=== PATIENT | female | born 1945 | race Caucasian/White ===

== ENCOUNTER 2017-11-04 13:20 | Observation (INO) | payer OTHER, MEDICAID ==
[2017-11-04 13:30] VITALS: BMI 31.5
[2017-11-04] MEDS ORDERED: NITROSTAT SL ONE (13:30)
[2017-11-04] MEDS ORDERED: ASPIRIN 81 MG CHEWTAB ONE (13:30)
[2017-11-04] MEDS ORDERED: ECOTRIN TAB 325 MG PO ONE (13:34)
--- NOTE | 2017-11-04 13:35 | DR.GENAD ---
HPI - PCP Primary Care Physician: CELESTINO - Complaint/Symptoms Chief Complaint Doctors Comments: History as stated. Patient denies a history of cardiac disease.. She states that she has chest pressure that radiates to the back. There is no diaphoresis. She admits to having controlling her A Fib and was changed from coreg to cardiazem. She says she is till having problems with heart rate. Chief Complaint:: PT. C/O CHEST PAIN AND PAIN BETWEEN HER SHOULDER BLADES. PT. STATES SHE FEELS LIKE SHE IS CHOKING. DR. TIRADO TOOK PT. OFF OF COREG 3.125MG PO BID AND PLACED HER ON CARDIZEM ER 180MG PO DAILY. CHEST PAIN BEGAN 30 MINUTES GENERAL OFFICE ASSISTANT. - Source History Provided: Patient - Mode of Arrival Mode of Arrival: Ambulatory - Timing Onset of Chief Complaint: 10/20/17 PMH - PMH Past Medical History: Yes Past Medical History: Anxiety, COPD, Depression, Dyslipidemia, GERD, Hypertension Past Medical History Comment: A-FIB Past Surgical History: Yes Surgical History: Appendectomy, Cholecystectomy, Hysterectomy, Mastectomy Past Surgical History Comment: BILATERAL MASTECTOMY, HERNIA REPAIR - Family History History of Family Medical Conditions: No - Social History Does patient currently use any type of tobacco product: No Have you used tobacco products in the last 12 months: No Type of Tobacco Use: None Does any household member use tobacco: No Alcohol Use: None Do you use any recreational Drugs:: No Lives With: Family Lives Where: Home - infectious screening In the last 2 months have you had wt loss of >10#?: NO Have you had fever, night sweats or hemotysis?: No Have you traveled outside the country in the last 6 months?: No Isolation: Standard ROS - Review of Systems Constitutional: negative: Diaphoresis Eyes: No Symptoms Reported ENTM: No Symptoms Reported Respiratoy: No Symptoms Reported Cardiovascular: No Symptoms Reported Gastrointestinal/Abdominal: No Symptoms Reported Genitourinary: No Symptoms Reported Neurological: No Symptoms Reported Musculoskeletal: No Symptoms Reported Integumentary: No Symptoms Reported Hematologic/Lymphatic: No Symptoms Reported Endocrine: No Symptoms Reported Psychiatric: No Symptoms Reported All Other Systems: Reviewed and Negative PE - Vital Signs Vitals: Temperature 97.6 F Pulse Rate [Apical] 69 Pulse Rate 90 Respiratory Rate 22 Blood Pressure [Left Arm] 111/59 Blood Pressure 134/62 O2 Sat by Pulse Oximetry 99 - General Limitations: No Limitations General Appearance: Alert, In No Apparent Distress - Head Head Exam: Normal Inspection, Atraumatic - Eyes Eye exam: Normal Appearance, PERRL, EOMI - ENT ENT Exam: Normal Exam External Ear Exam: Normal External Inspection TM/Canal Exam: Bilateral Normal Nose Exam: Normal Nose Exam, Sinus Tenderness Mouth Exam: Normal Inspection Throat Exam: Normal Inspection - Neck Neck Exam: Normal Inspection, Full ROM - Chest Chest Inspection: Normal Inspection - Respiratory Respiratory Exam: Normal Lung Sounds Bilat Respiratory Exam: Bilateral Clear to Auscultation - Cardiovascular Cardiovascular Exam: Regular Rate, Normal Rhythm - Abdominal Exam Abdominal Exam: Normal Inspection, Normal Bowel Sounds Abdominal Tenderness: negative: RUQ, RLQ, LUQ, LLQ, Epigastrium, Suprapubic, Diffuse, Mild, Moderate, Severe, Other - Extremities Extremities Exam: Normal Inspection, Full ROM - Back Back Exam: Normal Inspection - Neurologic Neurological Exam: Alert, Oriented X3, CN II-XII Intact - Psychiatric Psychiatric Exam: Normal Affect - Skin Skin Exam: Warm, Dry, Intact Course - Reevaluation 1st: Improved - Consultation Called: 15:15 (Dr Terry agreed to admit for further evaluatin and treatment) ROR - Labs Reviewed Result Diagrams: 11/04/17 13:40 11/04/17 13:40 Laboratory: WBC 12.1 X10^3/uL (3.6-10.0) H 11/04/17 13:40 RBC 4.45 X10^6/uL (3.5-5.4) 11/04/17 13:40 Hgb 13.6 g/dL (12.0-16.0) 11/04/17 13:40 Hct 40.3 % (36.0-47.0) 11/04/17 13:40 MCV 90.5 fL (80.0-100.0) 11/04/17 13:40 MCH 30.4 pg (27.0-34.0) 11/04/17 13:40 MCHC 33.6 g/dL (33.0-35.0) 11/04/17 13:40 RDW 13.9 % (11.6-16.5) 11/04/17 13:40 Plt Count 214 X10^3/uL (150.0-450.0) 11/04/17 13:40 MPV 9.9 fL (7.4-11.0) 11/04/17 13:40 Neut % (Auto) 67.1 % (42.0-75.0) 11/04/17 13:40 Lymph % (Auto) 19.8 % (21.0-51.0) L 11/04/17 13:40 Petroleum % (Auto) 6.4 % (0.0-13.0) 11/04/17 13:40 Eos % (Auto) 5.9 % (0.9-2.9) H 11/04/17 13:40 Baso % (Auto) 0.8 % (0.2-1.0) 11/04/17 13:40 Neut # (Auto) 8.1 x10^3/uL (2.2-4.8) H 11/04/17 13:40 Lymph # (Auto) 2.4 X10^3/uL (1.3-2.9) 11/04/17 13:40 Petroleum # (Auto) 0.8 x10^3/uL (0.3-0.8) 11/04/17 13:40 Eos # (Auto) 0.7 x10^3/uL (0.0-0.2) H 11/04/17 13:40 Baso # (Auto) 0.1 X10^3/uL (0.0-0.1) 11/04/17 13:40 Absolute Nucleated RBC 0.1 /100WBC 11/04/17 13:40 INR Target Range - 11/04/17 13:40 INR 0.93 (0.8-1.3) 11/04/17 13:40 APTT 27.5 SECONDS (22.9-36.5) 11/04/17 13:40 PTT Comment - 11/04/17 13:40 Sodium 139 mmol/L (136-145) 11/04/17 13:40 Corrected Sodium TNP 11/04/17 13:40 Potassium 4.0 mmol/L (3.5-5.1) 11/04/17 13:40 Chloride 101 mmol/L (98-107) 11/04/17 13:40 Carbon Dioxide 26.2 mmol/L (21-32) 11/04/17 13:40 BUN 39 mg/dL (7-18) H 11/04/17 13:40 Creatinine 1.87 mg/dL (0.55-1.02) H 11/04/17 13:40 Est GFR (MDRD) Af Amer 34 (>60) L 11/04/17 13:40 Est GFR (MDRD) Non-Af 28 (>60) L 11/04/17 13:40 Glucose 108 mg/dL (65-99) H 11/04/17 13:40 Calcium 8.9 mg/dL (8.5-10.1) 11/04/17 13:40 Corrected Calcium TNP 11/04/17 13:40 Total Bilirubin 0.40 mg/dL (0.2-1.0) 11/04/17 13:40 AST 24 Units/L (15-37) 11/04/17 13:40 ALT 32 Units/L (12-78) 11/04/17 13:40 Alkaline Phosphatase 115 Units/L (46-116) 11/04/17 13:40 Creatine Kinase 179 Units/L (26-192) 11/04/17 13:40 CK-MB (CK-2) 5.1 ng/mL (0-4.0) H* 11/04/17 13:40 CK/CKMB % Calc 2.9 % (<4) 11/04/17 13:40 Troponin I < 0.02 ng/mL (0-1.5) 11/04/17 13:40 Total Protein 8.6 g/dL (6.4-8.2) H 11/04/17 13:40 Albumin 4.0 g/dL (3.4-5.0) 11/04/17 13:40 Globulin 4.6 g/dL (2.5-4.5) H 11/04/17 13:40 Albumin/Globulin Ratio 0.9 Ratio (1.1-2.1) L 11/04/17 13:40 - XRAY XRAY Interpreted by: Radiologist - Diagnosis Discharge Problem: Prerenal azotemia Chest pain Qualifiers: Chest pain type: unspecified Qualified Code(s): R07.9 - Chest pain, unspecified - Discharge Plan Condition: Stable - Follow ups/Referrals Follow ups/Referrals: Gerardo WALLER [Primary Care Provider] - 3 days - Instructions
[2017-11-04] MEDS: NITROSTAT SL PRN ×2 (13:42→13:49)
[2017-11-04] MEDS: NS 1000 ML 1,000 ML IV SCH (13:52)
--- NOTE | 2017-11-04 13:52 | RAD ---
History: Chest pain. Study: Single-view chest. Comparison: 02/06/2013. Findings: The trachea is midline. The cardiac silhouette is within normal limits. The lungs are clear without focal consolidation, pleural effusion or pneumothorax. Surgical clips project over both lety sts, the right axillary region and upper abdomen. There are postsurgical changes of the cervical spin e as well. Impression: No acute cardiopulmonary process. Reported By:
[2017-11-04] MEDS ORDERED: DEMEROL INJ IVP ONE (13:55)
[2017-11-04] MEDS ORDERED: DEMEROL INJ ONE (13:56)
[2017-11-04 14:07] LABS: BASOPHILS # (AUTO) 0.1 X10^3/uL (0.0-0.1); BASOPHILS % (AUTO) 0.8 % (0.2-1.0); EOSINOPHILS # (AUTO) 0.7 x10^3/uL (0.0-0.2); EOSINOPHILS % (AUTO) 5.9 % (0.9-2.9); HEMATOCRIT 40.3 % (36.0-47.0); HEMOGLOBIN 13.6 g/dL (12.0-16.0); LYMPHOCYTES # (AUTO) 2.4 X10^3/uL (1.3-2.9); LYMPHOCYTES % (AUTO) 19.8 % (21.0-51.0); MEAN CORPUSCULAR HEMOGLOBIN 30.4 pg (27.0-34.0); MEAN CORPUSCULAR HGB CONC 33.6 g/dL (33.0-35.0); MEAN CORPUSCULAR VOLUME 90.5 fL (80.0-100.0); MEAN PLATELET VOLUME 9.9 fL (7.4-11.0); MONOCYTES # (AUTO) 0.8 x10^3/uL (0.3-0.8); MONOCYTES % (AUTO) 6.4 % (0.0-13.0); NEUTROPHILS # (AUTO) 8.1 x10^3/uL (2.2-4.8); NEUTROPHILS % (AUTO) 67.1 % (42.0-75.0); PLATELET COUNT 214 X10^3/uL (150.0-450.0); RED BLOOD COUNT 4.45 X10^6/uL (3.5-5.4); RED CELL DISTRIBUTION WIDTH 13.9 % (11.6-16.5); WHITE BLOOD COUNT 12.1 X10^3/uL (3.6-10.0)
[2017-11-04 14:08] LABS: BLOOD UREA NITROGEN 39 mg/dL (7-18); CALCIUM 8.9 mg/dL (8.5-10.1); CARBON DIOXIDE 26.2 mmol/L (21-32); CHLORIDE 101 mmol/L (98-107); CREATININE 1.87 mg/dL (0.55-1.02); SODIUM 139 mmol/L (136-145); TROPONIN I < 0.02 ng/mL (0-1.5); eGFR BLACK RACES 34 (>60); eGFR NON BLACK RACES 28 (>60)
[2017-11-04 14:30] LABS: ALANINE AMINOTRANSFERASE 32 Units/L (12-78); ALKALINE PHOSPHATASE 115 Units/L (46-116); ASPARTATE AMINO TRANSFERASE 24 Units/L (15-37); CKMB % 2.9 % (<4); CREATINE KINASE 179 Units/L (26-192); TOTAL PROTEIN 8.6 g/dL (6.4-8.2)
[2017-11-04 14:32] LABS: CREATINE KINASE MB 5.1 ng/mL (0-4.0)
[2017-11-04 19:52] LABS: CKMB % 2.7 % (<4); CREATINE KINASE 158 Units/L (26-192); TROPONIN I < 0.02 ng/mL (0-1.5)
[2017-11-04 19:56] LABS: CREATINE KINASE MB 4.2 ng/mL (0-4.0)
[2017-11-04] MEDS ORDERED: MILK OF MAGNESIA PO PRN (21:24)
[2017-11-04] MEDS: COLACE CAP 100 MG PO SCH (21:37)
[2017-11-04] MEDS: ATIVAN TAB 1 MG PO PRN (21:38)
[2017-11-04] MEDS: PERCOCET TAB 5/325 MG PO PRN (21:38)
[2017-11-05] MEDS: NS 1000 ML 1,000 ML IV SCH ×3 (01:09→16:33)
[2017-11-05 01:56] LABS: CKMB % 2.6 % (<4); CREATINE KINASE 144 Units/L (26-192); CREATINE KINASE MB 3.8 ng/mL (0-4.0); TROPONIN I < 0.02 ng/mL (0-1.5)
[2017-11-05] MEDS: PERCOCET TAB 5/325 MG PO PRN ×3 (04:11→17:06)
[2017-11-05 06:25] LABS: BASOPHILS # (AUTO) 0.1 X10^3/uL (0.0-0.1); BASOPHILS % (AUTO) 1.2 % (0.2-1.0); EOSINOPHILS # (AUTO) 0.9 x10^3/uL (0.0-0.2); EOSINOPHILS % (AUTO) 10.4 % (0.9-2.9); HEMATOCRIT 34.3 % (36.0-47.0); HEMOGLOBIN 11.6 g/dL (12.0-16.0); LYMPHOCYTES # (AUTO) 2.3 X10^3/uL (1.3-2.9); LYMPHOCYTES % (AUTO) 26.5 % (21.0-51.0); MEAN CORPUSCULAR HEMOGLOBIN 30.8 pg (27.0-34.0); MEAN CORPUSCULAR HGB CONC 33.8 g/dL (33.0-35.0); MEAN PLATELET VOLUME 10.7 fL (7.4-11.0); MONOCYTES # (AUTO) 0.8 x10^3/uL (0.3-0.8); MONOCYTES % (AUTO) 8.9 % (0.0-13.0); NEUTROPHILS # (AUTO) 4.7 x10^3/uL (2.2-4.8); PLATELET COUNT 143 X10^3/uL (150.0-450.0); RED BLOOD COUNT 3.77 X10^6/uL (3.5-5.4); RED CELL DISTRIBUTION WIDTH 14.1 % (11.6-16.5); WHITE BLOOD COUNT 8.8 X10^3/uL (3.6-10.0)
[2017-11-05 06:52] LABS: ALANINE AMINOTRANSFERASE 26 Units/L (12-78); ALBUMIN 2.9 g/dL (3.4-5.0); ALKALINE PHOSPHATASE 102 Units/L (46-116); ASPARTATE AMINO TRANSFERASE 19 Units/L (15-37); BLOOD UREA NITROGEN 26 mg/dL (7-18); CALCIUM 8.1 mg/dL (8.5-10.1); CARBON DIOXIDE 24.6 mmol/L (21-32); CHLORIDE 107 mmol/L (98-107); CHOL/HDL RATIO 2.4 (0.0-5.0); CHOLESTEROL 205 mg/dL (0-200); CREATININE 1.12 mg/dL (0.55-1.02); HDL CHOLESTEROL 85 mg/dL (40-60); SODIUM 140 mmol/L (136-145); TOTAL PROTEIN 6.7 g/dL (6.4-8.2); TRIGLYCERIDES 91 mg/dL (0-150); eGFR BLACK RACES > 60 (>60); eGFR NON BLACK RACES 51 (>60)
[2017-11-05] MEDS: ATIVAN TAB 1 MG PO PRN ×2 (10:20→17:06)
[2017-11-05] MEDS ORDERED: ACETAMINOPHEN PO PRN (13:29)
[2017-11-05] MEDS ORDERED: PHENERGAN TAB 25 MG PO PRN (13:29)
[2017-11-05] MEDS ORDERED: OXYCODONE HCL PO PRN (13:29)
[2017-11-05] MEDS ORDERED: ATIVAN TAB 1 MG PO PRN (13:29)
[2017-11-05] MEDS ORDERED: [UNRECOGNIZED DRUG - OTHER] PO PRN (13:29)
--- NOTE | 2017-11-05 13:29 | DR.H&P ---
H&P - History & Physical for Day of: H&P Date: 11/04/17 - Chief Complaint Chief Complaint: CP, SOB - Allergies Allergies/Adverse Reactions: Allergies Allergy/AdvReac Type Severity Reaction Status Date / Time amoxicillin [From Augmentin] Allergy Verified 11/04/17 14:12 aspirin Allergy Verified 11/04/17 14:12 clavulanic acid Allergy Verified 11/04/17 14:12 [From Augmentin] morphine Allergy Verified 11/04/17 14:12 NSAIDS (Non-Steroidal Allergy Verified 11/04/17 14:12 Anti-Inflamma - History of Present Illness History of Present Illness: 71 WF ER ADMISSION AFTER PRESENTING WITH CO CP AND SOB. PT STATES SHE HAS HX OF AFIB AND RECENTLY SEEN DR TIRADO AND HAD MEDICATION CHANGES. PT CO LEFT SIDE CP AND SOB, WORSE ON EXERTION. PT HAS PMH OF HTN, AFIB , COPD, OA. PT ADMITTED FOR EVALAUTION OF CP, R/O AMI - Past Medical History Past Medical History: Anxiety, COPD, Depression, Dyslipidemia, GERD, Hypertension - Past Surgical History Surgical History: Appendectomy, Cholecystectomy, Hysterectomy, Mastectomy - Social History Does patient currently use any type of tobacco product: No Have you used tobacco products in the last 12 months: No Type of Tobacco Use: None Does any household member use tobacco: No Alcohol Use: None Drug Use: Prescription Drugs - Medications Home Medications: Albuterol Neb 2.5MG/ 3Ml [ALBUTEROL NEB 2.5MG/ 3ML *] 2.5 mg PO TID PRN [History Confirmed 11/04/17] Carisoprodol 1 tab PO BID 11/04/17 [History Confirmed 11/04/17] Cetirizine HCl 1 tab PO DAILY 11/04/17 [History Confirmed 11/04/17] Dicyclomine HCl 1 tab PO DAILY 11/04/17 [History Confirmed 11/04/17] Fluticasone/Salmeterol [Advair Diskus 250-50 Mcg/Dose 14-dose] 1 inh INH BID PRN 11/04/17 [History Confirmed 11/04/17] Furosemide 20 mg PO BID 11/04/17 [History Confirmed 11/04/17] Levalbuterol Hfa Inhaler [XOPENEX HFA INHALER *] 2 inh INH Q4HR PRN 11/04/17 [ History Confirmed 11/04/17] Lisdexamfetamine Dimesylate [Vyvanse] 40 mg PO DAILY 11/04/17 [History Confirmed 11/04/17] Lorazepam [ATIVAN 1 MG TAB *] 1 mg PO TID PRN 11/04/17 [History Confirmed ] Melatonin 10 mg PO HS PRN 11/04/17 [History Confirmed 11/04/17] Mometasone/Formoterol [Dulera 100/5 mcg] 1 inh INH DAILY 11/04/17 [History Confirmed 11/04/17] Multivitamin [Multi-Vitamin Daily] 1 tab PO DAILY 11/04/17 [History Confirmed ] Oxycodone HCl/Acetaminophen [Endocet 10-325 mg Tablet] 1 tab PO Q6HR PRN [History Confirmed 11/04/17] Potassium Chloride [K-DUR TAB 20 mEq *] 20 mg PO BID 11/04/17 [History Confirmed 11/04/17] Promethazine HCl [PHENERGAN TAB 25 MG *] 25 mg PO Q6HR PRN 11/04/17 [History Confirmed 11/04/17] Ranitidine HCl 150 mg PO HS 11/04/17 [History Confirmed 11/04/17] Simvastatin 1 tab PO HS 11/04/17 [History Confirmed 11/04/17] Zolpidem Tartrate [AMBIEN 10 MG *] 10 mg PO HS PRN 11/04/17 [History Confirmed 11/04/17] - Review of Systems Constitutional: No Symptoms Reported ENT: No Symptoms Reported Respiratory: Shortness of Breath, SOB with Excertion Cardiovascular: Chest Pain, Palpitations Gastrointestinal: No Symptoms Reported Genitourinary: No Symptoms Reported Musculoskeletal: Back Pain, Neck Pain Skin: No Symptoms Reported Neurological: No Symptoms Reported - Physical Exam Vital Signs: Temperature 98.3 F Pulse Rate [Left Brachial] 74 Pulse Rate [Apical] 72 Pulse Rate 90 Respiratory Rate 18 Blood Pressure [Left Arm] 128/78 Blood Pressure 134/62 O2 Sat by Pulse Oximetry 98 Oriented: Normal Eyes: Normal Ear: Normal Nose: Normal Throat: Normal Respiratory: RLL Diminished, LLL Diminished Cardiovascular: Normal. negative: Edema : Normal Auscultation: Bowel Sounds: Normal Palpation: Normal Tenderness: Normal Skin: Normal Musculoskeletal: Back:Thoracic, Back:Lumbar Psychiatric: Anxiety Affect: Anxious Speech Pattern: Clear - Assessment/Plan (1) SOB (shortness of breath) Status: Acute Plan: ADMIT, SERIAL CE, EKGS. CARDIAC MONITORING. RESUME HOME MEDS. SUPPLEMENTAL O2 (2) Hypertension Status: Acute (3) History of atrial paroxysmal tachycardia Status: Acute (4) Chest pain Qualifiers: Chest pain type: unspecified Qualified Code(s): R07.9 - Chest pain, unspecified Status: Acute
[2017-11-05] MEDS ORDERED: PROVENTIL NEB TX 0.083% 2.5MG/ 3ML NEB SCH (14:00)
[2017-11-05] MEDS: PROVENTIL NEB TX 0.083% 2.5MG/ 3ML NEB SCH ×2 (14:18→21:54)
[2017-11-05] MEDS ORDERED: ATIVAN TAB 1 MG PO ONE (20:30)
[2017-11-05 20:39] VITALS: BP 149/73
[2017-11-05] MEDS: COLACE CAP 100 MG PO SCH (20:42)
[2017-11-05] MEDS ORDERED: PULMICORT NEB TX 0.5 MG NEB SCH (21:00)
[2017-11-05] MEDS ORDERED: K-DUR TAB 20 MEQ PO SCH (21:00)
[2017-11-05] MEDS ORDERED: LASIX PO SCH (21:00)
[2017-11-05] MEDS ORDERED: ZOCOR TAB 40 MG PO SCH (21:00)
[2017-11-05] MEDS ORDERED: ZANTAC PO SCH (21:00)
[2017-11-06] MEDS ORDERED: ZyrTEC TAB 10 MG PO SCH (09:00)
== END 2017-11-05 21:00 | disposition short-term general hospital (02) ==
LOC: ER 13:26 → MED/SURG 15:42
PROVIDERS: ADMIT Internal Medicine; ATTEND Internal Medicine
DX: R07.89 Other chest pain (principal); R79.89 Other specified abnormal findings of blood chemistry; R06.02 Shortness of breath; I48.91 Unspecified atrial fibrillation; I10 Essential (primary) hypertension; J44.9 Chronic obstructive pulmonary disease, unspecified; E78.2 Mixed hyperlipidemia; K21.9 Gastro-esophageal reflux disease without esophagitis; M19.90 Unspecified osteoarthritis, unspecified site
CPT/HCPCS: 36415; 71045; 80053; 80061; 82550; 82553; 84484; 85025; 85610; 85730; 93005; 93010; 94640; 94760; 96365; 96374; 99284; A4222; G0378; J2175; J7613; J7626

== ENCOUNTER 2018-08-10 16:07 | Observation (INO) ==
--- NOTE | 2018-08-10 16:26 | DR.H&P ---
H&P - History & Physical for Day of: H&P Date: 08/10/18 - Chief Complaint Chief Complaint: alvarez, dizziness, blurred vision, htn - History of Present Illness History of Present Illness: 72 WF DIRECT ADMIT FROM DR WANG OFFICE AFTER PRESENTING WITH CO ALVAREZ WITH BLURRED VISION AND DIZZINESS. PT HAS PMH OF HTN, BUT CO BP 180 SYSTOLIC. PT CO VELASQUEZ. PT HEART RATE 52 IN OFFICE. PT HAS PMH OF COPD, OA, CAD, TRICE, HTN, GERD, [place]. PT ADMITTED FOR TREATMENT OF NEW ONSET SYMPTOMATIC BRADYCARDIA, ALVAREZ WITH VISUAL DISTURBANCE. - Past Medical History Past Medical History: Anxiety, COPD, Depression, Dyslipidemia, GERD, Hypertension - Past Surgical History Surgical History: Appendectomy, Cholecystectomy, Hysterectomy, Mastectomy - Social History Does patient currently use any type of tobacco product: No Have you used tobacco products in the last 12 months: No Type of Tobacco Use: None Does any household member use tobacco: No Alcohol Use: None Drug Use: None - Medications Home Medications: amoxicillin [From Augmentin] Allergy (Verified 11/04/17 14:12) aspirin Allergy (Verified 11/04/17 14:12) clavulanic acid [From Augmentin] Allergy (Verified 11/04/17 14:12) morphine Allergy (Verified 11/04/17 14:12) NSAIDS (Non-Steroidal Anti-Inflamma Allergy (Verified 11/04/17 14:12) - Review of Systems Constitutional: Weakness Eyes: No Symptoms Reported ENT: No Symptoms Reported Respiratory: SOB with Excertion Cardiovascular: Edema, Light Headedness Gastrointestinal: Nausea Genitourinary: No Symptoms Reported Musculoskeletal: Back Pain, Neck Pain Skin: No Symptoms Reported Neurological: Weakness, Other (ALVAREZ, DIZZINESS) - Physical Exam Vital Signs: Blood Pressure [Left Arm] 149/73 Blood Pressure 149/73 Oriented: Normal Eyes: Normal Nose: Normal Throat: Normal Respiratory: RLL Diminished, LLL Diminished Cardiovascular: Bradycardia, Edema : Normal Auscultation: Bowel Sounds: Normal Palpation: Normal Tenderness: Normal Skin: Normal Musculoskeletal: Back:Lumbar Psychiatric: Anxiety Affect: Anxious Speech Pattern: Clear, Appropriate - Assessment/Plan (1) Bradycardia Status: Acute Plan: ADMIT, CT HEAD ON ADMISSION R/O ACUTE CVA. SERIAL CE AND EKG. TELEMETRY, HOLD BETABLOCKERS. VERIFY HOME MEDICATION ADMISSION LABS, UA. CTA CAROTIDS, BP AND LIPID CONTROL. PAIN CONTROL (2) Headache Status: Acute (3) Dizziness Status: Acute (4) Vision blurred Status: Acute (5) Hypertension Status: Acute (6) SOB (shortness of breath) Status: Acute - Allergies Allergies/Adverse Reactions: Allergies Allergy/AdvReac Type Severity Reaction Status Date / Time amoxicillin [From Augmentin] Allergy Verified 11/04/17 14:12 aspirin Allergy Verified 11/04/17 14:12 clavulanic acid Allergy Verified 11/04/17 14:12 [From Augmentin] morphine Allergy Verified 11/04/17 14:12 NSAIDS (Non-Steroidal Allergy Verified 11/04/17 14:12 Anti-Inflamma
[2018-08-10] MEDS ORDERED: NS 1000 ML 1,000 ML IV SCH (17:00)
--- NOTE | 2018-08-10 17:32 | RAD ---
CHEST RADIOGRAPHS PA AND LATERAL VIEWS CLINICAL HISTORY: 72-year-old female with shortness of breath and history of COPD. COMPARISON: Chest radiograph 11/04/2017. FINDINGS: Surgical and support devices are unchanged. The cardiopericardial silhouette is stable with chronic prominence interstitium and perihilar lung markings. There is no focal consolidation, pleural effusion or pneumothorax. The lungs are well inflated. Pulmonary vascularity is normal. Imaged osseous structures are intact. Soft tissues are unremarkable. IMPRESSION: No acute cardiopulmonary process with findings consistent with history of COPD. Reported By:
--- NOTE | 2018-08-10 17:39 | CT ---
HISTORY: Blurred vision, dizziness, and headache. Study: CT brain without contrast Comparison: None. Technique: Multiple axial images of the brain were obtained from the skull base to the vertex without administration of IV contrast. Dose reduction techniques including Automated Exposure Control (AEC) and adjustment of mA and kV were utilized. Findings: Age-related cortical atrophy and chronic small vessel ischemic changes. No acute intraparenchymal hemorrhage or mass can be identified. No extra-axial fluid collections are seen. No alteration in the attenuation of the brain parenchyma can be identified to suggest acute or subacute ischemic change. The ventricular system is symmetric and nondilated. The extracranial structures are grossly unremarkable. IMPRESSION: No acute intracranial pathology. However, if clinically concerned for acute ischemia/infarction MRI of the brain is more sensitive. Reported By:
[2018-08-10 17:47] LABS: BASOPHILS # (AUTO) 0.1 X10^3/uL (0.0-0.1); BASOPHILS % (AUTO) 0.9 % (0.2-1.0); EOSINOPHILS # (AUTO) 0.8 x10^3/uL (0.0-0.2); HEMOGLOBIN 13.9 g/dL (12.0-16.0); LYMPHOCYTES # (AUTO) 2.2 X10^3/uL (1.3-2.9); LYMPHOCYTES % (AUTO) 21.3 % (21.0-51.0); MEAN CORPUSCULAR HEMOGLOBIN 31.1 pg (27.0-34.0); MEAN CORPUSCULAR HGB CONC 33.8 g/dL (33.0-35.0); MEAN CORPUSCULAR VOLUME 92.2 fL (80.0-100.0); MEAN PLATELET VOLUME 9.9 fL (7.4-11.0); MONOCYTES # (AUTO) 0.6 x10^3/uL (0.3-0.8); MONOCYTES % (AUTO) 5.6 % (0.0-13.0); NEUTROPHILS # (AUTO) 6.6 x10^3/uL (2.2-4.8); NEUTROPHILS % (AUTO) 64.2 % (42.0-75.0); PLATELET COUNT 225 X10^3/uL (150.0-450.0); RED BLOOD COUNT 4.45 X10^6/uL (3.5-5.4); RED CELL DISTRIBUTION WIDTH 13.6 % (11.6-16.5); WHITE BLOOD COUNT 10.2 X10^3/uL (3.6-10.0)
[2018-08-10] MEDS: COZAAR PO SCH (17:59)
[2018-08-10 18:02] LABS: BLOOD UREA NITROGEN 14 mg/dL (7-18); CALCIUM 9.1 mg/dL (8.5-10.1); CARBON DIOXIDE 29.8 mmol/L (21-32); CHLORIDE 102 mmol/L (98-107); COR NA(FOR HYPERGLY) 140 mmol/L (136-145); CREATININE 1.09 mg/dL (0.55-1.02); SODIUM 140 mmol/L (136-145); TROPONIN I < 0.02 ng/mL (0-1.5); eGFR NON BLACK RACES 53 (>60)
[2018-08-10 18:06] LABS: ALANINE AMINOTRANSFERASE 23 Units/L (12-78); ALBUMIN 3.6 g/dL (3.4-5.0); ALKALINE PHOSPHATASE 118 Units/L (46-116); ASPARTATE AMINO TRANSFERASE 18 Units/L (15-37); CKMB % 2.2 % (<4); CREATINE KINASE 88 Units/L (26-192); CREATINE KINASE MB 1.9 ng/mL (0-4.0); MAGNESIUM 1.8 mg/dL (1.7-2.9); TOTAL PROTEIN 7.8 g/dL (6.4-8.2)
[2018-08-10] MEDS: XOPENEX 1.25 MG/3 ML NEBULE NEB SCH (18:15)
[2018-08-10] MEDS ORDERED: K-DUR TAB 20 MEQ PO PRN (18:22)
[2018-08-10] MEDS ORDERED: POTASSIUM CHL 40 MEQ/NS 0.45% 500 ML IV PRN (18:22)
[2018-08-10] MEDS ORDERED: MICRO K EXTEN CAP 10 MEQ PO PRN (18:22)
[2018-08-10] MEDS ORDERED: K-RIDER 10 MEQ/NS 100 ML 10 MEQ/100 ML BAG IV PRN (18:22)
[2018-08-10] MEDS ORDERED: POTASSIUM CHL 60 MEQ/NS 0.45% 500 ML IV PRN (18:22)
[2018-08-10] MEDS ORDERED: POTASSIUM CHLORIDE LIQ 20 MEQ UDC PO PRN (18:22)
[2018-08-10] MEDS ORDERED: KLOR-CON PO PRN (18:22)
[2018-08-10 18:30] VITALS: BMI 32.8
[2018-08-10 19:15] LABS: BILIRUBIN,URINE NEGATIVE (NEGATIVE); BLOOD/HEMOGLOBIN,URINE 2+ (NEGATIVE); GLUCOSE, URINE NEGATIVE (NEGATIVE); KETONES,URINE NEGATIVE (NEGATIVE); LEUKOCYTE ESTERASE ,URINE 1+ (NEGATIVE); NITRITES,URINE NEGATIVE (NEGATIVE); PROTEIN,URINE 2+ (NEGATIVE); UROBILINOGEN,URINE NORMAL (NORMAL)
[2018-08-10] MEDS: MAGNESIUM SULFATE 1 GRAM/100 mL PREMIX 1 GM/100 ML BAG IV PRN ×2 (19:21→21:01)
[2018-08-10 19:25] LABS: APPEARANCE,URINE CLEAR (CLEAR); COLOR,URINE YELLOW (YELLOW)
[2018-08-10 19:27] LABS: BACTERIA,URINE TRACE /HPF (NEGATIVE); CALCIUM OXALATE CRYSTALS,UR FEW /HPF (NEGATIVE); MUCUS,URINE FEW /HPF (NEGATIVE); SQUAMOUS EPITHELIAL CELL,UR RARE /HPF (NEGATIVE)
[2018-08-10] MEDS ORDERED: ATIVAN TAB 0.5 MG PO PRN (20:59)
[2018-08-10] MEDS ORDERED: COLACE CAP 100 MG PO SCH (21:00)
[2018-08-10] MEDS ORDERED: ZOCOR TAB 40 MG PO SCH (21:00)
[2018-08-10] MEDS: PERCOCET TAB 5/325 MG PO PRN (21:00)
[2018-08-10 23:38] LABS: CKMB % 2.5 % (<4); CREATINE KINASE 73 Units/L (26-192); CREATINE KINASE MB 1.8 ng/mL (0-4.0); TROPONIN I < 0.02 ng/mL (0-1.5)
[2018-08-11] MEDS: XOPENEX 1.25 MG/3 ML NEBULE NEB SCH ×2 (00:57→06:06)
[2018-08-11 06:07] LABS: BASOPHILS # (AUTO) 0.1 X10^3/uL (0.0-0.1); BASOPHILS % (AUTO) 0.7 % (0.2-1.0); EOSINOPHILS # (AUTO) 0.7 x10^3/uL (0.0-0.2); EOSINOPHILS % (AUTO) 7.7 % (0.9-2.9); HEMATOCRIT 37.4 % (36.0-47.0); HEMOGLOBIN 12.3 g/dL (12.0-16.0); LYMPHOCYTES # (AUTO) 2.1 X10^3/uL (1.3-2.9); LYMPHOCYTES % (AUTO) 24.5 % (21.0-51.0); MEAN CORPUSCULAR HEMOGLOBIN 30.7 pg (27.0-34.0); MEAN CORPUSCULAR VOLUME 92.9 fL (80.0-100.0); MEAN PLATELET VOLUME 10.1 fL (7.4-11.0); MONOCYTES # (AUTO) 0.8 x10^3/uL (0.3-0.8); MONOCYTES % (AUTO) 9.3 % (0.0-13.0); NEUTROPHILS # (AUTO) 4.9 x10^3/uL (2.2-4.8); NEUTROPHILS % (AUTO) 57.8 % (42.0-75.0); PLATELET COUNT 177 X10^3/uL (150.0-450.0); RED BLOOD COUNT 4.02 X10^6/uL (3.5-5.4); RED CELL DISTRIBUTION WIDTH 13.9 % (11.6-16.5); WHITE BLOOD COUNT 8.5 X10^3/uL (3.6-10.0)
[2018-08-11 06:28] LABS: ALANINE AMINOTRANSFERASE 18 Units/L (12-78); ALKALINE PHOSPHATASE 114 Units/L (46-116); ASPARTATE AMINO TRANSFERASE 23 Units/L (15-37); BLOOD UREA NITROGEN 22 mg/dL (7-18); CALCIUM 8.6 mg/dL (8.5-10.1); CARBON DIOXIDE 27.7 mmol/L (21-32); CHLORIDE 103 mmol/L (98-107); CKMB % 1.9 % (<4); COR CA(FOR HYPOALB) 9.4 mg/dL (8.5-10.1); CREATINE KINASE 85 Units/L (26-192); CREATINE KINASE MB 1.6 ng/mL (0-4.0); CREATININE 0.97 mg/dL (0.55-1.02); MAGNESIUM 2.7 mg/dL (1.7-2.9); SODIUM 140 mmol/L (136-145); TOTAL PROTEIN 6.9 g/dL (6.4-8.2); TROPONIN I < 0.02 ng/mL (0-1.5); eGFR NON BLACK RACES > 60 (>60)
[2018-08-11] MEDS ORDERED: DEMEROL INJ IVP ONE (08:24)
[2018-08-11] MEDS: COZAAR PO SCH (09:03)
[2018-08-11] MEDS ORDERED: DEMEROL INJ ONE (09:24)
[2018-08-11 10:45] VITALS: BP 156/78
[2018-08-11] MEDS ORDERED: BENADRYL INJ 50 MG VIAL IV ONE (12:51)
[2018-08-11] MEDS ORDERED: BENADRYL INJ 50 MG VIAL ONE (13:18)
--- NOTE | 2018-08-11 13:18 | CT ---
CT ANGIOGRAPHY NECK CLINICAL HISTORY: 72-year-old female with history of carotid artery stenosis and dizziness. COMPARISON: None. TECHNIQUE: Multiple contiguous axial CT images were obtained from the superior orbital rim to the aortic arch prior to and following the administration of 75 mL Omnipaque 350 IV contrast. Coronal and sagittal reformats provided. MIP reformats are submitted. FINDINGS: Noncontrasted images demonstrate no evidence of abnormal intra- or extra-axial fluid collections, midline shift, or mass effect. Villegas-white differentiation is maintained. The ventricular system is normal in size and morphology. The basilar cisterns are normal. Post contrast images demonstrate no evidence of abnormal intracranial enhancement. The vertebral arteries are codominant. The basilar artery gives off normal bilateral AICA, superior cerebellar and posterior cerebral arteries. There are tiny caliber posterior communicating arteries bilaterally. Non flow limiting calcific atherosclerosis at the carotid bifurcations. The internal carotid arteries are normal from their distal cervical segments to the carotid terminus. The middle cerebral arteries and anterior cerebral arteries are normal. There is a small caliber anterior communicating artery. There is normal opacification of the major dural venous sinuses. The take off of the great vessels is conventional. Right vertebral artery enters foramen transversarium at C5, left enters at C6. The origins of the common carotid and vertebral arteries are patent. There is no evidence of dissection or high grade stenosis of the carotid or vertebral systems. The vertebral arteries are codominant. The soft tissues of the neck are within normal limits. Scattered emphysematous changes of the lungs. Multilevel degenerative changes spondyloarthropathy with mild bilateral neural foraminal stenosis C6-C7. Status post ACDF C4-C6 with interbody cages without hardware failure. IMPRESSION: 1. Intact anterior and posterior circulations without dissection, major branch occlusion, aneurysm, or vascular malformation. 2. Non flow limiting calcific atherosclerosis carotid bifurcations. 3. No dissection or high grade stenosis of the carotid or vertebral systems. Reported By:
[2018-08-11] MEDS: PERCOCET TAB 5/325 MG PO PRN (14:11)
--- NOTE | 2018-08-19 13:58 | PCM.DCPLAN ---
Discharge Summary - Admission Date Date of Admission: 08/10/18 - Discharge Date Discharge Date: 08/11/18 - Admission Diagnoses (1) Bradycardia Status: Acute (2) Headache Status: Acute (3) Dizziness Status: Acute (4) Vision blurred Status: Acute (5) Hypertension Status: Acute (6) SOB (shortness of breath) Status: Acute - Discharge Diagnoses Discharge Diagnosis: SAME ADMISSION WITH RESOLUTION IN BRADYCARDIA - Discharge Medications Discharge Medications: Home Medication List diltiazem HCl 180 mg PO DAILY 08/10/18 [History] duloxetine 60 mg PO BID 08/10/18 [History] furosemide 20 mg PO DAILY 08/10/18 [History] losartan 100 mg PO QHS 08/10/18 [History] oxycodone-acetaminophen 10 - 325 mg PO Q6HR PRN 08/10/18 [History] pramipexole 0.125 mg PO QHS 08/10/18 [History] zolpidem [Ambien] 10 mg PO HS #30 tab 08/11/18 [Rx] Prescriptions: zolpidem [Ambien] AILYN HERNANDEZ - Hospital Course Vital Signs: Temperature 97.9 F Pulse Rate [Left Brachial] 78 Pulse Rate 72 Respiratory Rate 18 Blood Pressure [Left Arm] 156/78 Blood Pressure 149/73 O2 Sat by Pulse Oximetry 97 Latest Lab Results: Laboratory Last Values WBC 8.5 X10^3/uL (3.6-10.0) 08/11/18 05:30 RBC 4.02 X10^6/uL (3.5-5.4) 08/11/18 05:30 Hgb 12.3 g/dL (12.0-16.0) 08/11/18 05:30 Hct 37.4 % (36.0-47.0) 08/11/18 05:30 MCV 92.9 fL (80.0-100.0) 08/11/18 05:30 MCH 30.7 pg (27.0-34.0) 08/11/18 05:30 MCHC 33.0 g/dL (33.0-35.0) 08/11/18 05:30 RDW 13.9 % (11.6-16.5) 08/11/18 05:30 Plt Count 177 X10^3/uL (150.0-450.0) 08/11/18 05:30 MPV 10.1 fL (7.4-11.0) 08/11/18 05:30 Neut % (Auto) 57.8 % (42.0-75.0) 08/11/18 05:30 Lymph % (Auto) 24.5 % (21.0-51.0) 08/11/18 05:30 [place] % (Auto) 9.3 % (0.0-13.0) 08/11/18 05:30 Eos % (Auto) 7.7 % (0.9-2.9) H 08/11/18 05:30 Baso % (Auto) 0.7 % (0.2-1.0) 08/11/18 05:30 Neut # (Auto) 4.9 x10^3/uL (2.2-4.8) H 08/11/18 05:30 Lymph # (Auto) 2.1 X10^3/uL (1.3-2.9) 08/11/18 05:30 [place] # (Auto) 0.8 x10^3/uL (0.3-0.8) 08/11/18 05:30 Eos # (Auto) 0.7 x10^3/uL (0.0-0.2) H 08/11/18 05:30 Baso # (Auto) 0.1 X10^3/uL (0.0-0.1) 08/11/18 05:30 Absolute Nucleated RBC 0.0 /100WBC 08/11/18 05:30 Sodium 140 mmol/L (136-145) 08/11/18 05:30 Corrected Sodium TNP 08/11/18 05:30 Potassium 3.9 mmol/L (3.5-5.1) 08/11/18 05:30 Chloride 103 mmol/L (98-107) 08/11/18 05:30 Carbon Dioxide 27.7 mmol/L (21-32) 08/11/18 05:30 BUN 22 mg/dL (7-18) H 08/11/18 05:30 Creatinine 0.97 mg/dL (0.55-1.02) 08/11/18 05:30 Est GFR (MDRD) Af Amer > 60 (>60) 08/11/18 05:30 Est GFR (MDRD) Non-Af > 60 (>60) 08/11/18 05:30 Glucose 107 mg/dL (65-99) H 08/11/18 05:30 Calcium 8.6 mg/dL (8.5-10.1) 08/11/18 05:30 Corrected Calcium 9.4 mg/dL (8.5-10.1) 08/11/18 05:30 Magnesium 2.7 mg/dL (1.7-2.9) 08/11/18 05:30 Total Bilirubin 0.30 mg/dL (0.2-1.0) 08/11/18 05:30 AST 23 Units/L (15-37) 08/11/18 05:30 ALT 18 Units/L (12-78) 08/11/18 05:30 Alkaline Phosphatase 114 Units/L (46-116) 08/11/18 05:30 Creatine Kinase 85 Units/L (26-192) 08/11/18 05:30 CK-MB (CK-2) 1.6 ng/mL (0-4.0) 08/11/18 05:30 CK/CKMB % Calc 1.9 % (<4) 08/11/18 05:30 Troponin I < 0.02 ng/mL (0-1.5) 08/11/18 05:30 Total Protein 6.9 g/dL (6.4-8.2) 08/11/18 05:30 Albumin 3.0 g/dL (3.4-5.0) L 08/11/18 05:30 Globulin 3.9 g/dL (2.5-4.5) 08/11/18 05:30 Albumin/Globulin Ratio 0.8 Ratio (1.1-2.1) L 08/11/18 05:30 Specimen Type Clean catch urine 08/10/18 19:10 Urine Color Yellow (YELLOW) 08/10/18 19:10 Urine Appearance Clear (CLEAR) 08/10/18 19:10 Urine pH 5.0 (5.0 - 8.0) 08/10/18 19:10 Ur Specific [place] 1.025 (1.000-1.030) 08/10/18 19:10 Urine Protein 2+ (NEGATIVE) 08/10/18 19:10 Urine Glucose (UA) Negative (NEGATIVE) 08/10/18 19:10 Urine Ketones Negative (NEGATIVE) 08/10/18 19:10 Urine Occult Blood 2+ (NEGATIVE) 08/10/18 19:10 Urine Nitrite Negative (NEGATIVE) 08/10/18 19:10 Urine Bilirubin Negative (NEGATIVE) 08/10/18 19:10 Urine Urobilinogen Normal (NORMAL) 08/10/18 19:10 Ur Leukocyte Esterase 1+ (NEGATIVE) 08/10/18 19:10 Urine RBC 3-5 /HPF (NONE SEEN) 08/10/18 19:10 Urine WBC 5-10 /HPF (NONE SEEN) 08/10/18 19:10 Ur Squamous Epith Cells Rare /HPF (NEGATIVE) 08/10/18 19:10 Calcium Oxalate Crystal Few /HPF (NEGATIVE) 08/10/18 19:10 Urine Bacteria Trace /HPF (NEGATIVE) 08/10/18 19:10 Urine Mucus Few /HPF (NEGATIVE) 08/10/18 19:10 Ur Culture Indicated? Yes/culture set up 08/10/18 19:10 Hospital Course: 72 WF DIRECT ADMIT FROM DR WANG OFFICE WITH CO INTRACTABLE ALVAREZ, ELEVATED BLOOD PRESSURE AND DIZZINESS PT WAS BRADYCARDIC ON ADMISSION AND HAD CT HEAD RO CVA, WHICH WAS NORMAL PT HAD CE AND EKG AND CXR ON ADMISSION. PT HAD GENTLE I HYDRATION AND CTA CAROTIDS WITHOUT SIGNIFICANT STENOSIS. PT WAS IMPROVED AND STABEL SHE WAS READY TO DC HOME. PT WAS GIVEN BP DIARY INSTRUCATION AND MEDICATION CHANGES. PT VERBALIZED UNDERSTANDING AND D/C MEDICATION ON DC PLAN AND FOLLOW UP INSTRUCTIONS - Discharge Plan Disposition: HOME, SELF-CARE Condition: Stable Prescriptions: zolpidem [Ambien] 10 mg PO HS #30 tab - Follow ups/Referrals Follow ups/Referrals: AILYN HERNANDEZ [Nurse Practitioner] - 08/19/18 1:45 pm - Instructions Instructions: Bradycardia, Adult, Nonspecific Chest Pain, [id number], Hypertension, [id number], Dizziness, [id number] Forms: Patient Portal
== END 2018-08-11 15:15 | disposition home or self-care (01) ==
LOC: MED/SURG
PROVIDERS: ADMIT Internal Medicine; ATTEND Internal Medicine
DX: H53.8 Other visual disturbances; R53.83 Other fatigue; R06.02 Shortness of breath; J44.9 Chronic obstructive pulmonary disease, unspecified; I10 Essential (primary) hypertension; R51 Headache; R42 Dizziness and giddiness; R00.1 Bradycardia, unspecified; E78.2 Mixed hyperlipidemia; M25.50 Pain in unspecified joint; K21.9 Gastro-esophageal reflux disease without esophagitis
CPT/HCPCS: 36415; 70450; 70498; 71020; 71046; 80053; 81001; 82306; 82550; 82553; 83735; 84484; 85025; 87086; 93005; 94640; 94760; 96367; 96374; A4222; G0378; J1200; J2175; J3475; J7030

== ENCOUNTER 2018-10-04 09:30 | Observation (INO) ==
--- NOTE | 2018-10-04 10:31 | ED.ABDFE ---
HPI Time Seen Time Seen by Provider: 10/04/18 10:25 PCP Primary Care Physician: AILYN Mart Doctors Chief Complaint Comments: She feels bad for a few days. This includes some upper abdominal pain with nausea or vomiting but no chest pain. Chief Complaint:: PT C/O " FEELING LIKE SHIT" AND THAT IS NAUSEATED AND HAVING EPIGASTRIC PAIN ,,BR Self Treatment fo Chief Complaint: PT SAYS THE WEEKEND SHE FELT BAD AND IT GOT WORSE THIS AM ,,BR Source History Provided: Patient Mode of arrival Mode of Arrival: Ambulatory Timing Onset of Chief Complaint: 10/02/18 PMH PMH Past Medical History: Yes Past Medical History: Anxiety, COPD, Depression, Dyslipidemia, GERD and Hypertension Past Surgical History: Yes Surgical History: Appendectomy, Cholecystectomy, Hysterectomy, Mastectomy and Other Family History History of Family Medical Conditions: Yes Family Medical History: Cancer Social History Does patient currently use any type of tobacco product: Yes Have you used tobacco products in the last 12 months: Yes Type of Tobacco Use: Cigarettes Does any household member use tobacco: No Alcohol Use: Rarely Do you use any recreational Drugs:: No Lives With: Family Lives Where: Home infectious screening In the last 2 months have you had wt loss of >10#?: NO Have you had fever, night sweats or hemotysis?: No Have you traveled outside the country in the last 6 months?: No Isolation: Standard ROS Review of Systems Constitutional: No Symptoms Reported Eyes: No Symptoms Reported ENTM: No Symptoms Reported Respiratoy: No Symptoms Reported Cardiovascular: No Symptoms Reported Gastrointestinal/Abdominal: Nausea and Vomiting Neurological: No Symptoms Reported Musculoskeletal: No Symptoms Reported Integumentary: No Symptoms Reported Hematologic/Lymphatic: No Symptoms Reported Endocrine: No Symptoms Reported Psychiatric: No Symptoms Reported PE Vital Signs Vitals: Temperature 97.1 F Pulse Rate 70 Respiratory Rate 26 Blood Pressure [Left Arm] 156/78 Blood Pressure 113/56 O2 Sat by Pulse Oximetry 94 General Limitations: No Limitations General Appearance: Alert and In No Apparent Distress Head Head Exam: Normal Inspection, Atraumatic and Normocephalic Eyes Eye exam: Normal Appearance, PERRL and EOMI ENT ENT Exam: Normal Exam, Normal Oropharynx and Mucous Membranes Moist Neck Neck Exam: Normal Inspection, Full ROM and Trachea Midline Chest Chest Inspection: Normal Inspection and Symmetric Chest Wall Rise Respiratory Respiratory Exam: Normal Lung Sounds Bilat Cardiovascular Cardiovascular Exam: Tachycardia, Irregular Rhythm, +S1 and +S2 Abdominal Exam Abdominal Exam: Normal Inspection, Normal Bowel Sounds and Soft Rectal Rectal Exam: Deferred Back Back Exam: Normal Inspection Extremeties Extremities Exam: Normal Inspection and Full ROM External Exam: Female: Deferred Neurologic Neurological Exam: Alert and Oriented X3 Psychiatric Psychiatric Exam: Normal Affect and Normal Mood Skin Skin Exam: Warm, Dry and Normal Color ROR Labs Reviewed Laboratory Results Reviewed?: Yes Result Diagrams: 10/04/18 10:22 10/04/18 10:22 Laboratory: WBC 10.4 X10^3/uL (3.6-10.0) H 10/04/18 10:22 RBC 4.87 X10^6/uL (3.5-5.4) 10/04/18 10:22 Hgb 14.8 g/dL (12.0-16.0) 10/04/18 10:22 Hct 44.8 % (36.0-47.0) 10/04/18 10:22 MCV 91.9 fL (80.0-100.0) 10/04/18 10:22 MCH 30.4 pg (27.0-34.0) 10/04/18 10:22 MCHC 33.1 g/dL (33.0-35.0) 10/04/18 10:22 RDW 13.9 % (11.6-16.5) 10/04/18 10:22 Plt Count 217 X10^3/uL (150.0-450.0) 10/04/18 10:22 MPV 10.0 fL (7.4-11.0) 10/04/18 10:22 Neut % (Auto) 58.2 % (42.0-75.0) 10/04/18 10:22 Lymph % (Auto) 22.1 % (21.0-51.0) 10/04/18 10:22 [place] % (Auto) 7.6 % (0.0-13.0) 10/04/18 10:22 Eos % (Auto) 11.0 % (0.9-2.9) H 10/04/18 10:22 Baso % (Auto) 1.1 % (0.2-1.0) H 10/04/18 10:22 Neut # (Auto) 6.1 x10^3/uL (2.2-4.8) H 10/04/18 10:22 Lymph # (Auto) 2.3 X10^3/uL (1.3-2.9) 10/04/18 10:22 [place] # (Auto) 0.8 x10^3/uL (0.3-0.8) 10/04/18 10:22 Eos # (Auto) 1.1 x10^3/uL (0.0-0.2) H 10/04/18 10:22 Baso # (Auto) 0.1 X10^3/uL (0.0-0.1) 10/04/18 10:22 Absolute Nucleated RBC 0.0 /100WBC 10/04/18 10:22 INR Target Range - 10/04/18 10:22 INR 0.87 (0.8-1.3) 10/04/18 10:22 APTT 23.8 SECONDS (22.9-36.5) 10/04/18 10:22 PTT Comment - 10/04/18 10:22 Sodium 142 mmol/L (136-145) 10/04/18 10:22 Corrected Sodium TNP 10/04/18 10:22 Potassium 3.5 mmol/L (3.5-5.1) 10/04/18 10:22 Chloride 101 mmol/L (98-107) 10/04/18 10:22 Carbon Dioxide 34.1 mmol/L (21-32) H 10/04/18 10:22 BUN 14 mg/dL (7-18) 10/04/18 10:22 Creatinine 1.10 mg/dL (0.55-1.02) H 10/04/18 10:22 Est GFR (MDRD) Af Amer > 60 (>60) 10/04/18 10:22 Est GFR (MDRD) Non-Af 52 (>60) L 10/04/18 10:22 Glucose 102 mg/dL (65-99) H 10/04/18 10:22 Calcium 9.2 mg/dL (8.5-10.1) 10/04/18 10:22 Corrected Calcium TNP 10/04/18 10:22 Magnesium 1.9 mg/dL (1.7-2.9) 10/04/18 10:22 Total Bilirubin 0.40 mg/dL (0.2-1.0) 10/04/18 10:22 AST 24 Units/L (15-37) 10/04/18 10:22 ALT 25 Units/L (12-78) 10/04/18 10:22 Alkaline Phosphatase 113 Units/L (46-116) 10/04/18 10:22 Creatine Kinase 90 Units/L (26-192) 10/04/18 10:22 CK-MB (CK-2) 1.7 ng/mL (0-4.0) 10/04/18 10:22 CK/CKMB % Calc 1.9 % (<4) 10/04/18 10:22 Troponin I < 0.02 ng/mL (0-1.5) 10/04/18 10:22 Total Protein 8.0 g/dL (6.4-8.2) 10/04/18 10:22 Albumin 3.5 g/dL (3.4-5.0) 10/04/18 10:22 Globulin 4.5 g/dL (2.5-4.5) 10/04/18 10:22 Albumin/Globulin Ratio 0.8 Ratio (1.1-2.1) L 10/04/18 10:22 TSH 3rd Generation 4.595 uIU/mL (0.358-3.74) H 10/04/18 10:22 Specimen Type Clean catch urine 10/04/18 11:51 Urine Color Yellow (YELLOW) 10/04/18 11:51 Urine Appearance Clear (CLEAR) 10/04/18 11:51 Urine pH 5.0 (5.0 - 8.0) 10/04/18 11:51 Ur Specific [place] 1.010 (1.000-1.030) 10/04/18 11:51 Urine Protein 2+ (NEGATIVE) 10/04/18 11:51 Urine Glucose (UA) Negative (NEGATIVE) 10/04/18 11:51 Urine Ketones 1+ (NEGATIVE) 10/04/18 11:51 Urine Occult Blood 1+ (NEGATIVE) 10/04/18 11:51 Urine Nitrite Negative (NEGATIVE) 10/04/18 11:51 Urine Bilirubin Negative (NEGATIVE) 10/04/18 11:51 Urine Urobilinogen 1+ (NORMAL) 10/04/18 11:51 Ur Leukocyte Esterase 1+ (NEGATIVE) 10/04/18 11:51 Urine RBC 0-2 /HPF (NONE SEEN) 10/04/18 11:51 Urine WBC 0-2 /HPF (NONE SEEN) 10/04/18 11:51 Ur Squamous Epith Cells Rare /HPF (NEGATIVE) 10/04/18 11:51 Urine Bacteria Negative /HPF (NEGATIVE) 10/04/18 11:51 Urine Mucus Few /HPF (NEGATIVE) 10/04/18 11:51 Ur Culture Indicated? No/not indicated 10/04/18 11:51 EKG Rate: 80 [place]: Normal Rhythm: PACs Block: None Hypertrophy: None ST: Normal Diagnosis Discharge Problem: Benign essential HTN A-fib Qualifiers: Atrial fibrillation type: paroxysmal Qualified Code(s): I48.0 - Paroxysmal atrial fibrillation
[2018-10-04 10:36] LABS: BASOPHILS # (AUTO) 0.1 X10^3/uL (0.0-0.1); BASOPHILS % (AUTO) 1.1 % (0.2-1.0); EOSINOPHILS # (AUTO) 1.1 x10^3/uL (0.0-0.2); HEMATOCRIT 44.8 % (36.0-47.0); HEMOGLOBIN 14.8 g/dL (12.0-16.0); LYMPHOCYTES # (AUTO) 2.3 X10^3/uL (1.3-2.9); LYMPHOCYTES % (AUTO) 22.1 % (21.0-51.0); MEAN CORPUSCULAR HEMOGLOBIN 30.4 pg (27.0-34.0); MEAN CORPUSCULAR HGB CONC 33.1 g/dL (33.0-35.0); MEAN CORPUSCULAR VOLUME 91.9 fL (80.0-100.0); MONOCYTES # (AUTO) 0.8 x10^3/uL (0.3-0.8); MONOCYTES % (AUTO) 7.6 % (0.0-13.0); NEUTROPHILS # (AUTO) 6.1 x10^3/uL (2.2-4.8); NEUTROPHILS % (AUTO) 58.2 % (42.0-75.0); PLATELET COUNT 217 X10^3/uL (150.0-450.0); RED BLOOD COUNT 4.87 X10^6/uL (3.5-5.4); RED CELL DISTRIBUTION WIDTH 13.9 % (11.6-16.5); WHITE BLOOD COUNT 10.4 X10^3/uL (3.6-10.0)
[2018-10-04 11:13] LABS: ALANINE AMINOTRANSFERASE 25 Units/L (12-78); ALBUMIN 3.5 g/dL (3.4-5.0); ALKALINE PHOSPHATASE 113 Units/L (46-116); ASPARTATE AMINO TRANSFERASE 24 Units/L (15-37); BLOOD UREA NITROGEN 14 mg/dL (7-18); CALCIUM 9.2 mg/dL (8.5-10.1); CARBON DIOXIDE 34.1 mmol/L (21-32); CHLORIDE 101 mmol/L (98-107); MAGNESIUM 1.9 mg/dL (1.7-2.9); SODIUM 142 mmol/L (136-145); TSH (3RD GENERATION) 4.595 uIU/mL (0.358-3.74); eGFR NON BLACK RACES 52 (>60)
--- NOTE | 2018-10-04 11:17 | RAD ---
Examination: Chest x-ray. Clinical history: Tachycardia. Technique: A single portable AP view of the chest was obtained. Comparison: 08/10/2018. Findings: Surgical clips are seen overlying the left and right hemithorax, the right axillary region and the upper abdomen. Monitor leads are seen overlying the chest. The lungs are mildly hypoventilated, precluding evaluation of the heart size. No confluent pulmonary opacity is noted. No pneumothorax or pleural effusion is noted. There are postsurgical changes from fusion surgery in the cervical spine. The bones are diffusely osteopenic. Degenerative changes are noted in the spine. Old healed right-sided rib fractures are noted. No acute osseous abnormality is noted. Impression: 1. Mildly hypoventilated lungs. Reported By:
[2018-10-04 11:32] LABS: CKMB % 1.9 % (<4); CREATINE KINASE 90 Units/L (26-192); CREATINE KINASE MB 1.7 ng/mL (0-4.0); TROPONIN I < 0.02 ng/mL (0-1.5)
[2018-10-04 11:56] LABS: BILIRUBIN,URINE NEGATIVE (NEGATIVE); BLOOD/HEMOGLOBIN,URINE 1+ (NEGATIVE); GLUCOSE, URINE NEGATIVE (NEGATIVE); KETONES,URINE 1+ (NEGATIVE); LEUKOCYTE ESTERASE ,URINE 1+ (NEGATIVE); NITRITES,URINE NEGATIVE (NEGATIVE); PROTEIN,URINE 2+ (NEGATIVE); UROBILINOGEN,URINE 1+ (NORMAL)
[2018-10-04 11:57] LABS: APPEARANCE,URINE CLEAR (CLEAR); COLOR,URINE YELLOW (YELLOW)
[2018-10-04 12:08] LABS: BACTERIA,URINE NEGATIVE /HPF (NEGATIVE); MUCUS,URINE FEW /HPF (NEGATIVE); RBC,URINE 0-2 /HPF (NONE SEEN); SQUAMOUS EPITHELIAL CELL,UR RARE /HPF (NEGATIVE)
[2018-10-04] MEDS ORDERED: ZOFRAN INJ 4 MG VIAL IVP ONE (13:04)
[2018-10-04] MEDS ORDERED: ZOFRAN INJ 4 MG VIAL ONE (13:06)
[2018-10-04] MEDS ORDERED: NORCO 10/325 TAB PO ONE (13:49)
[2018-10-04] MEDS ORDERED: NORCO 10/325 TAB ONE (13:50)
--- NOTE | 2018-10-04 13:56 | ED.ABDFE ---
HPI Time Seen Time Seen by Provider: 10/04/18 10:25 PCP Primary Care Physician: AILYN Complaint Chief Complaint:: PT C/O " FEELING LIKE SHIT" AND THAT IS NAUSEATED AND HAVING EPIGASTRIC PAIN ,,BR Self Treatment fo Chief Complaint: PT SAYS THE WEEKEND SHE FELT BAD AND IT GOT WORSE THIS AM ,,BR Source History Provided: Patient Mode of arrival Mode of Arrival: Ambulatory Timing Onset of Chief Complaint: 10/02/18 PMH PMH Past Medical History: Yes Past Medical History: Anxiety, COPD, Depression, Dyslipidemia, GERD and Hypertension Past Surgical History: Yes Surgical History: Appendectomy, Cholecystectomy, Hysterectomy, Mastectomy and Other Family History History of Family Medical Conditions: Yes Family Medical History: Cancer Social History Does patient currently use any type of tobacco product: Yes Have you used tobacco products in the last 12 months: Yes Type of Tobacco Use: Cigarettes Does any household member use tobacco: No Alcohol Use: Rarely Do you use any recreational Drugs:: No Lives With: Family Lives Where: Home infectious screening In the last 2 months have you had wt loss of >10#?: NO Have you had fever, night sweats or hemotysis?: No Have you traveled outside the country in the last 6 months?: No Isolation: Standard PE Vital Signs Vitals: Temperature 97.1 F Pulse Rate 70 Respiratory Rate 26 Blood Pressure [Left Arm] 156/78 Blood Pressure 113/56 O2 Sat by Pulse Oximetry 94 COURSE Reevaluation 1st: Improved 2nd: Improved Education/Counseling Education/Counseling: Patient, Family, Education and Counseling Educated On: Treatment, Diagnosis, Prognosis and Needs for Follow Up ROR Labs Reviewed Result Diagrams: 10/04/18 10:22 10/04/18 10:22 Laboratory: WBC 10.4 X10^3/uL (3.6-10.0) H 10/04/18 10:22 RBC 4.87 X10^6/uL (3.5-5.4) 10/04/18 10:22 Hgb 14.8 g/dL (12.0-16.0) 10/04/18 10:22 Hct 44.8 % (36.0-47.0) 10/04/18 10:22 MCV 91.9 fL (80.0-100.0) 10/04/18 10:22 MCH 30.4 pg (27.0-34.0) 10/04/18 10:22 MCHC 33.1 g/dL (33.0-35.0) 10/04/18 10:22 RDW 13.9 % (11.6-16.5) 10/04/18 10:22 Plt Count 217 X10^3/uL (150.0-450.0) 10/04/18 10:22 MPV 10.0 fL (7.4-11.0) 10/04/18 10:22 Neut % (Auto) 58.2 % (42.0-75.0) 10/04/18 10:22 Lymph % (Auto) 22.1 % (21.0-51.0) 10/04/18 10:22 [place] % (Auto) 7.6 % (0.0-13.0) 10/04/18 10:22 Eos % (Auto) 11.0 % (0.9-2.9) H 10/04/18 10:22 Baso % (Auto) 1.1 % (0.2-1.0) H 10/04/18 10:22 Neut # (Auto) 6.1 x10^3/uL (2.2-4.8) H 10/04/18 10:22 Lymph # (Auto) 2.3 X10^3/uL (1.3-2.9) 10/04/18 10:22 [place] # (Auto) 0.8 x10^3/uL (0.3-0.8) 10/04/18 10:22 Eos # (Auto) 1.1 x10^3/uL (0.0-0.2) H 10/04/18 10:22 Baso # (Auto) 0.1 X10^3/uL (0.0-0.1) 10/04/18 10:22 Absolute Nucleated RBC 0.0 /100WBC 10/04/18 10:22 INR Target Range - 10/04/18 10:22 INR 0.87 (0.8-1.3) 10/04/18 10:22 APTT 23.8 SECONDS (22.9-36.5) 10/04/18 10:22 PTT Comment - 10/04/18 10:22 Sodium 142 mmol/L (136-145) 10/04/18 10:22 Corrected Sodium TNP 10/04/18 10:22 Potassium 3.5 mmol/L (3.5-5.1) 10/04/18 10:22 Chloride 101 mmol/L (98-107) 10/04/18 10:22 Carbon Dioxide 34.1 mmol/L (21-32) H 10/04/18 10:22 BUN 14 mg/dL (7-18) 10/04/18 10:22 Creatinine 1.10 mg/dL (0.55-1.02) H 10/04/18 10:22 Est GFR (MDRD) Af Amer > 60 (>60) 10/04/18 10:22 Est GFR (MDRD) Non-Af 52 (>60) L 10/04/18 10:22 Glucose 102 mg/dL (65-99) H 10/04/18 10:22 Calcium 9.2 mg/dL (8.5-10.1) 10/04/18 10:22 Corrected Calcium TNP 10/04/18 10:22 Magnesium 1.9 mg/dL (1.7-2.9) 10/04/18 10:22 Total Bilirubin 0.40 mg/dL (0.2-1.0) 10/04/18 10:22 AST 24 Units/L (15-37) 10/04/18 10:22 ALT 25 Units/L (12-78) 10/04/18 10:22 Alkaline Phosphatase 113 Units/L (46-116) 10/04/18 10:22 Creatine Kinase 90 Units/L (26-192) 10/04/18 10:22 CK-MB (CK-2) 1.7 ng/mL (0-4.0) 10/04/18 10:22 CK/CKMB % Calc 1.9 % (<4) 10/04/18 10:22 Troponin I < 0.02 ng/mL (0-1.5) 10/04/18 10:22 Total Protein 8.0 g/dL (6.4-8.2) 10/04/18 10:22 Albumin 3.5 g/dL (3.4-5.0) 10/04/18 10:22 Globulin 4.5 g/dL (2.5-4.5) 10/04/18 10:22 Albumin/Globulin Ratio 0.8 Ratio (1.1-2.1) L 10/04/18 10:22 TSH 3rd Generation 4.595 uIU/mL (0.358-3.74) H 10/04/18 10:22 Specimen Type Clean catch urine 10/04/18 11:51 Urine Color Yellow (YELLOW) 10/04/18 11:51 Urine Appearance Clear (CLEAR) 10/04/18 11:51 Urine pH 5.0 (5.0 - 8.0) 10/04/18 11:51 Ur Specific [place] 1.010 (1.000-1.030) 10/04/18 11:51 Urine Protein 2+ (NEGATIVE) 10/04/18 11:51 Urine Glucose (UA) Negative (NEGATIVE) 10/04/18 11:51 Urine Ketones 1+ (NEGATIVE) 10/04/18 11:51 Urine Occult Blood 1+ (NEGATIVE) 10/04/18 11:51 Urine Nitrite Negative (NEGATIVE) 10/04/18 11:51 Urine Bilirubin Negative (NEGATIVE) 10/04/18 11:51 Urine Urobilinogen 1+ (NORMAL) 10/04/18 11:51 Ur Leukocyte Esterase 1+ (NEGATIVE) 10/04/18 11:51 Urine RBC 0-2 /HPF (NONE SEEN) 10/04/18 11:51 Urine WBC 0-2 /HPF (NONE SEEN) 10/04/18 11:51 Ur Squamous Epith Cells Rare /HPF (NEGATIVE) 10/04/18 11:51 Urine Bacteria Negative /HPF (NEGATIVE) 10/04/18 11:51 Urine Mucus Few /HPF (NEGATIVE) 10/04/18 11:51 Ur Culture Indicated? No/not indicated 10/04/18 11:51 XRAY XRAY Interpreted by: Radiologist XRAY Findings: CXR: Mildly hypoventilated lungs. Diagnosis Discharge Problem: Benign essential HTN A-fib Qualifiers: Atrial fibrillation type: paroxysmal Qualified Code(s): I48.0 - Paroxysmal atrial fibrillation
[2018-10-04 14:31] LABS: CKMB % 2.4 % (<4); CREATINE KINASE 74 Units/L (26-192); CREATINE KINASE MB 1.8 ng/mL (0-4.0); TROPONIN I < 0.02 ng/mL (0-1.5)
[2018-10-04] MEDS ORDERED: PATIENT'S HOME MEDICATION (Oxycodone-Acetaminophen [Oxycodone-Acetaminophen] 0 MG) PO PRN (17:04)
[2018-10-04] MEDS ORDERED: ATIVAN TAB 1 MG PO PRN (17:04)
[2018-10-04] MEDS ORDERED: FLUTICASONE SALMETEROL INH PRN (17:04)
[2018-10-04] MEDS ORDERED: MIRAPEX TAB 0.25 MG PO SCH (17:04)
[2018-10-04] MEDS ORDERED: COZAAR PO SCH (17:04)
[2018-10-04] MEDS ORDERED: XOPENEX 1.25 MG/3 ML NEBULE NEB PRN (17:04)
[2018-10-04] MEDS ORDERED: ADVAIR DISKUS 250/50 IN PRN (17:13)
[2018-10-04] MEDS ORDERED: PERCOCET TAB 5/325 MG PO PRN ×2 (17:14)
[2018-10-04] MEDS ORDERED: ROXICODONE TAB 5 MG PO PRN (17:14)
[2018-10-04] MEDS: PERCOCET TAB 5/325 MG PO PRN ×2 (17:24→23:45)
[2018-10-04] MEDS: PHENERGAN TAB 25 MG PO PRN (17:24)
--- NOTE | 2018-10-04 17:28 | DR.H&P ---
H&P - History & Physical for Day of: H&P Date: 10/04/18 - Chief Complaint Chief Complaint: ADBDOMINAL PAIN, CO FEELING BAD, WEAK - History of Present Illness History of Present Illness: 72 WF ER ADMISSION AFTER PRESENTING WITH CO UPPER ABDOMINAL PAIN, NAUSEA, DENIES CP. PT HAS PMH OF COPD, CAD, CHF, OA, TRICE, MDD. PT ADMITTED FOR SERIAL CE AND EKG. - Past Medical History Past Medical History: Hypertension, Dyslipidemia, Depression, Anxiety, COPD, GERD - Past Surgical History Surgical History: Appendectomy, Cholecystectomy, Hysterectomy, Mastectomy, Other - Family History Family Medical History: Cancer - Social History Does patient currently use any type of tobacco product: Yes Have you used tobacco products in the last 12 months: Yes Type of Tobacco Use: Cigarettes Does any household member use tobacco: No Alcohol Use: Rarely - Medications Home Medications: amoxicillin [From Augmentin] Allergy (Verified 10/04/18 09:44) aspirin Allergy (Verified 10/04/18 09:44) clavulanic acid [From Augmentin] Allergy (Verified 10/04/18 09:44) morphine Allergy (Verified 10/04/18 09:44) NSAIDS (Non-Steroidal Anti-Inflamma Allergy (Verified 10/04/18 09:44) CONTINUE taking the following medications albuterol sulfate 1 inh INHALATION PRN PRN 10/04/18 [History] citalopram 20 mg PO DAILY 10/04/18 [History] diphenhydramine HCl [Banophen] 25 mg PO HS 10/04/18 [History] fluconazole 200 mg PO DAILY 10/04/18 [History] [id number] [Erina Magnair Starter] 1 inh INHALATION DAILY 10/04/18 [History] hydralazine 10 mg PO BID 10/04/18 [History] levocetirizine 5 mg PO DAILY 10/04/18 [History] montelukast [Singulair] 10 mg PO DAILY 10/04/18 [History] trazodone 50 mg PO HS 10/04/18 [History] - Review of Systems Constitutional: Weakness Eyes: No Symptoms Reported ENT: No Symptoms Reported Respiratory: SOB with Excertion Cardiovascular: denies: Edema Gastrointestinal: Nausea, Vomiting, Abdominal Pain Genitourinary: No Symptoms Reported Musculoskeletal: Back Pain Skin: No Symptoms Reported Neurological: Weakness - Physical Exam Vital Signs: Temperature 97.1 F Pulse Rate 66 Respiratory Rate 20 Blood Pressure [Left Arm] 156/78 Blood Pressure 124/61 O2 Sat by Pulse Oximetry 91 Oriented: Normal Eyes: Normal Ear: Normal Throat: Normal Respiratory: RLL Diminished, LLL Diminished Cardiovascular: negative: Edema : Normal Auscultation: Bowel Sounds: Normal Tenderness: Epigastric Skin: Normal Musculoskeletal: Back:Lumbar Psychiatric: Normal Mood Description: Calm Speech Pattern: Clear, Appropriate - Assessment/Plan (1) Abdominal pain Qualifiers: Abdominal location: epigastric Qualified Code(s): R10.13 - Epigastric pain Status: Acute Plan: ADMIT, SERIAL CE AND EKG. HTN MONITORING. RESP CONSULT. VERIFY HOME MEDICATION (2) COPD (chronic obstructive pulmonary disease) Status: Acute (3) HTN (hypertension) Status: Acute (4) CAD (coronary artery disease) Status: Acute - Allergies Allergies/Adverse Reactions: Allergies Allergy/AdvReac Type Severity Reaction Status Date / Time amoxicillin [From Augmentin] Allergy Verified 10/04/18 09:44 aspirin Allergy Verified 10/04/18 09:44 clavulanic acid Allergy Verified 10/04/18 09:44 [From Augmentin] morphine Allergy Verified 10/04/18 09:44 NSAIDS (Non-Steroidal Allergy Verified 10/04/18 09:44 Anti-Inflamma
[2018-10-04 17:38] LABS: AMYLASE 55 Units/L (25-115); LIPASE 179 Units/L (73-393)
[2018-10-04] MEDS: CYMBALTA PO SCH (20:58)
[2018-10-04] MEDS: AMBIEN PO SCH (20:58)
[2018-10-04] MEDS: MIRAPEX TAB 0.25 MG PO SCH (20:58)
[2018-10-04] MEDS: XARELTO PO SCH (20:58)
[2018-10-04] MEDS: COZAAR PO SCH (20:59)
[2018-10-04] MEDS: PROVENTIL NEB TX 0.083% 2.5MG/ 3ML NEB SCH (21:12)
[2018-10-04] MEDS: PULMICORT NEB TX 0.5 MG NEB SCH (21:12)
[2018-10-04 21:19] LABS: CKMB % 1.9 % (<4); CREATINE KINASE 88 Units/L (26-192); CREATINE KINASE MB 1.7 ng/mL (0-4.0); TROPONIN I < 0.02 ng/mL (0-1.5)
[2018-10-05 02:55] LABS: CKMB % 2.5 % (<4); CREATINE KINASE 75 Units/L (26-192); CREATINE KINASE MB 1.9 ng/mL (0-4.0); TROPONIN I < 0.02 ng/mL (0-1.5)
[2018-10-05 05:30] LABS: BASOPHILS % (AUTO) 0.5 % (0.2-1.0); EOSINOPHILS % (AUTO) 10.8 % (0.9-2.9); HEMATOCRIT 43.1 % (36.0-47.0); HEMOGLOBIN 14.2 g/dL (12.0-16.0); LYMPHOCYTES # (AUTO) 2.3 X10^3/uL (1.3-2.9); LYMPHOCYTES % (AUTO) 25.7 % (21.0-51.0); MEAN CORPUSCULAR HEMOGLOBIN 30.8 pg (27.0-34.0); MEAN CORPUSCULAR VOLUME 93.4 fL (80.0-100.0); MONOCYTES # (AUTO) 0.8 x10^3/uL (0.3-0.8); MONOCYTES % (AUTO) 9.2 % (0.0-13.0); NEUTROPHILS # (AUTO) 4.8 x10^3/uL (2.2-4.8); NEUTROPHILS % (AUTO) 53.8 % (42.0-75.0); PLATELET COUNT 196 X10^3/uL (150.0-450.0); RED BLOOD COUNT 4.62 X10^6/uL (3.5-5.4); RED CELL DISTRIBUTION WIDTH 13.8 % (11.6-16.5)
[2018-10-05 05:59] LABS: ALANINE AMINOTRANSFERASE 23 Units/L (12-78); ALBUMIN 3.5 g/dL (3.4-5.0); ALKALINE PHOSPHATASE 118 Units/L (46-116); ASPARTATE AMINO TRANSFERASE 21 Units/L (15-37); BLOOD UREA NITROGEN 27 mg/dL (7-18); CALCIUM 8.8 mg/dL (8.5-10.1); CARBON DIOXIDE 28.8 mmol/L (21-32); CHLORIDE 101 mmol/L (98-107); CREATININE 1.69 mg/dL (0.55-1.02); SODIUM 141 mmol/L (136-145); eGFR NON BLACK RACES 32 (>60)
[2018-10-05 06:30] VITALS: BMI 33.3
[2018-10-05] MEDS: ZANTAC PO SCH (08:23)
[2018-10-05] MEDS: XARELTO PO SCH ×2 (08:25→21:25)
[2018-10-05] MEDS: K-DUR TAB 20 MEQ PO SCH (08:25)
[2018-10-05] MEDS: CARDIZEM CD 180 MG PO SCH (08:25)
[2018-10-05] MEDS: PERCOCET TAB 5/325 MG PO PRN ×3 (08:26→20:00)
[2018-10-05] MEDS: ZOCOR TAB 40 MG PO SCH (08:26)
[2018-10-05] MEDS: LASIX PO SCH (08:26)
[2018-10-05] MEDS: CYMBALTA PO SCH ×2 (08:30→21:28)
[2018-10-05] MEDS ORDERED: PATIENT'S HOME MEDICATION (Diltiazem Hcl [Diltiazem Hcl] 180 MG) PO SCH (09:00)
[2018-10-05] MEDS ORDERED: K-DUR TAB 20 MEQ PO SCH (09:00)
[2018-10-05] MEDS: PROVENTIL NEB TX 0.083% 2.5MG/ 3ML NEB SCH (09:19)
[2018-10-05] MEDS: PULMICORT NEB TX 0.5 MG NEB SCH ×2 (09:19→20:25)
[2018-10-05] MEDS: NS 1000 ML 1,000 ML IV SCH (11:07)
[2018-10-05] MEDS: XOPENEX 1.25 MG/3 ML NEBULE NEB SCH ×3 (12:07→20:25)
[2018-10-05] MEDS: PHENERGAN TAB 25 MG PO PRN ×2 (13:59→20:01)
[2018-10-05] MEDS: ATIVAN TAB 1 MG PO SCH ×2 (15:36→21:25)
[2018-10-05] MEDS ORDERED: DEMEROL INJ ONE (17:22)
[2018-10-05] MEDS: COZAAR PO SCH (21:24)
[2018-10-05] MEDS: MIRAPEX TAB 0.25 MG PO SCH (21:25)
[2018-10-05] MEDS: AMBIEN PO SCH (21:25)
[2018-10-06] MEDS: DEMEROL INJ IVP PRN ×2 (00:14→07:43)
[2018-10-06] MEDS: NS 1000 ML 1,000 ML IV SCH ×2 (01:21→02:30)
[2018-10-06 06:21] LABS: BASOPHILS # (AUTO) 0.1 X10^3/uL (0.0-0.1); EOSINOPHILS # (AUTO) 0.8 x10^3/uL (0.0-0.2); EOSINOPHILS % (AUTO) 10.2 % (0.9-2.9); HEMATOCRIT 35.3 % (36.0-47.0); HEMOGLOBIN 11.6 g/dL (12.0-16.0); LYMPHOCYTES # (AUTO) 1.9 X10^3/uL (1.3-2.9); LYMPHOCYTES % (AUTO) 25.9 % (21.0-51.0); MEAN CORPUSCULAR HEMOGLOBIN 30.8 pg (27.0-34.0); MEAN CORPUSCULAR HGB CONC 32.9 g/dL (33.0-35.0); MEAN CORPUSCULAR VOLUME 93.5 fL (80.0-100.0); MEAN PLATELET VOLUME 10.2 fL (7.4-11.0); MONOCYTES # (AUTO) 0.7 x10^3/uL (0.3-0.8); MONOCYTES % (AUTO) 9.6 % (0.0-13.0); NEUTROPHILS % (AUTO) 53.3 % (42.0-75.0); PLATELET COUNT 165 X10^3/uL (150.0-450.0); RED BLOOD COUNT 3.77 X10^6/uL (3.5-5.4); RED CELL DISTRIBUTION WIDTH 13.8 % (11.6-16.5); WHITE BLOOD COUNT 7.5 X10^3/uL (3.6-10.0)
[2018-10-06 06:39] LABS: ALANINE AMINOTRANSFERASE 21 Units/L (12-78); ALBUMIN 2.9 g/dL (3.4-5.0); ALKALINE PHOSPHATASE 107 Units/L (46-116); ASPARTATE AMINO TRANSFERASE 17 Units/L (15-37); BLOOD UREA NITROGEN 23 mg/dL (7-18); CALCIUM 8.4 mg/dL (8.5-10.1); CARBON DIOXIDE 30.6 mmol/L (21-32); CHLORIDE 108 mmol/L (98-107); COR CA(FOR HYPOALB) 9.3 mg/dL (8.5-10.1); CREATININE 1.18 mg/dL (0.55-1.02); SODIUM 145 mmol/L (136-145); TOTAL PROTEIN 6.6 g/dL (6.4-8.2); eGFR NON BLACK RACES 48 (>60)
[2018-10-06] MEDS: CYMBALTA PO SCH (09:00)
[2018-10-06] MEDS: PERCOCET TAB 5/325 MG PO PRN (09:10)
[2018-10-06] MEDS: ZOCOR TAB 40 MG PO SCH (09:10)
[2018-10-06] MEDS: XARELTO PO SCH (09:11)
[2018-10-06] MEDS: LASIX PO SCH (09:11)
[2018-10-06] MEDS: CARDIZEM CD 180 MG PO SCH (09:11)
[2018-10-06] MEDS: K-DUR TAB 20 MEQ PO SCH (09:11)
[2018-10-06] MEDS: ZANTAC PO SCH (09:11)
[2018-10-06] MEDS: ATIVAN TAB 1 MG PO SCH (09:12)
[2018-10-06] MEDS: PHENERGAN TAB 25 MG PO PRN (09:12)
[2018-10-06] MEDS ORDERED: DEMEROL INJ IVP ONE (10:42)
[2018-10-06] MEDS ORDERED: MIRALAX POWDER (1 DOSE 17 G) PO SCH (11:00)
[2018-10-06] MEDS: XOPENEX 1.25 MG/3 ML NEBULE NEB SCH (12:24)
[2018-10-06 13:32] VITALS: BP 139/63
== END 2018-10-06 12:25 | disposition home or self-care (01) ==
LOC: MED/SURG 09:38 → ER 09:38 → MED/SURG 16:53
PROVIDERS: ADMIT Internal Medicine; ATTEND Internal Medicine
DX: I48.0 Paroxysmal atrial fibrillation; R94.31 Abnormal electrocardiogram [ECG] [EKG]; E86.0 Dehydration; Z79.899 Other long term (current) drug therapy; K21.9 Gastro-esophageal reflux disease without esophagitis; R10.13 Epigastric pain; F32.89 Other specified depressive episodes; I25.10 Atherosclerotic heart disease of native coronary artery without angina pectoris; M51.36 Other intervertebral disc degeneration, lumbar region; E78.2 Mixed hyperlipidemia; I10 Essential (primary) hypertension; J44.9 Chronic obstructive pulmonary disease, unspecified
CPT/HCPCS: 36415; 71010; 71045; 80053; 81001; 82150; 82550; 82553; 83690; 83735; 84443; 84484; 85025; 85610; 85730; 93005; 94640; 94760; 96365; 96367; 96374; 99284; A4216; A4222; Q0169; G0378; J2175; J2405; J7030; J7613; J7626

== ENCOUNTER 2021-01-05 14:14 | Inpatient (IN) ==
[2021-01-05] MEDS ORDERED: LEVSIN/MAALOX/LIDOC VISC PO ONE (14:29)
[2021-01-05] MEDS ORDERED: LEVSIN/MAALOX/LIDOC VISC ONE (14:31)
[2021-01-05] MEDS ORDERED: DUONEB 0.5 MG/3 MG (3 mL) NEB ONE ×2 (14:42→14:48)
[2021-01-05] MEDS ORDERED: SOLU-Medrol 125 MG VIAL IVP ONE (14:45)
[2021-01-05] MEDS ORDERED: SOLU-Medrol 125 MG VIAL ONE (14:50)
[2021-01-05 15:04] LABS: BASOPHILS # (AUTO) 0.1 X10^3/uL (0.0-0.1); BASOPHILS % (AUTO) 0.7 % (0.2-1.0); EOSINOPHILS % (AUTO) 0.3 % (0.9-2.9); HEMATOCRIT 25.7 % (36.0-47.0); LYMPHOCYTES # (AUTO) 0.8 X10^3/uL (1.3-2.9); LYMPHOCYTES % (AUTO) 7.5 % (21.0-51.0); MEAN CORPUSCULAR HEMOGLOBIN 24.6 pg (27.0-34.0); MEAN CORPUSCULAR HGB CONC 30.9 g/dL (33.0-35.0); MEAN CORPUSCULAR VOLUME 79.7 fL (80.0-100.0); MEAN PLATELET VOLUME 8.5 fL (7.4-11.0); MONOCYTES # (AUTO) 1.2 x10^3/uL (0.3-0.8); MONOCYTES % (AUTO) 11.1 % (0.0-13.0); NEUTROPHILS # (AUTO) 8.7 x10^3/uL (2.2-4.8); NEUTROPHILS % (AUTO) 80.4 % (42.0-75.0); PLATELET COUNT 347 X10^3/uL (150.0-450.0); RED BLOOD COUNT 3.23 X10^6/uL (3.5-5.4); RED CELL DISTRIBUTION WIDTH 17.8 % (11.6-16.5); WHITE BLOOD COUNT 10.9 X10^3/uL (3.6-10.0)
[2021-01-05] MEDS ORDERED: DILAUDID INJ IVP ONE ×2 (15:13→19:20)
[2021-01-05] MEDS ORDERED: DILAUDID INJ ONE ×2 (15:19→19:21)
[2021-01-05] MEDS ORDERED: PROTONIX INJ 40 MG VIAL ONE (15:21)
[2021-01-05 15:23] LABS: ALBUMIN 2.5 g/dL (3.4-5.0); CALCIUM 8.5 mg/dL (8.5-10.1); CARBON DIOXIDE 28.6 mmol/L (21-32); COR CA(FOR HYPOALB) 9.7 mg/dL (8.5-10.1); CREATININE 2.02 mg/dL (0.55-1.02); TOTAL PROTEIN 7.1 g/dL (6.4-8.2); TSH (3RD GENERATION) 3.138 uIU/mL (0.358-3.74)
[2021-01-05 15:27] LABS: CKMB % 3.1 % (<4); CREATINE KINASE 32 Units/L (26-192); CREATINE KINASE MB < 1.0 ng/mL (0-4.0); TROPONIN I < 0.02 ng/mL (0-1.5)
[2021-01-05] MEDS ORDERED: PROTONIX INJ 40 MG VIAL IVP ONE (15:29)
--- NOTE | 2021-01-05 15:55 | ED.ABDFE ---
HPI Time Seen Time Seen by Provider: 01/05/21 14:24 HPI Comment HPI Comment: According to pt she has not been feeling well for weeks .has experienced pain in epigastric area that is gradual in onset and has lowly worsened with increased pain with eating and drinking .has been feeling weak and tired . Furthermore does have hx of copd ,has oxygen at home but has not been using it .did have wheezing and shortness of breath .ambulance called and pt was brought for evaluation Complaint Doctors Chief Complaint Comments: epigastric pain ,shortness of breath COVID-19 Coronavirus symptoms experienced: Shortness of Breath Reviewed Nurses Notes Review: Yes Source History Provided: Patient and Family Member Mode of arrival Mode of Arrival: EMS Timing Came on: Gradually Duration Since Onset: Since Onset Duration: Weeks Location Location: Epigastric Severity Severity: Moderate and Severe Quality Quality: Aching Context History of: None Modifying factors Worsening Factors: Food Improving Factors: Nothing Associated signs and symptoms Associated Signs and Symptoms: None PMH PMH Past Medical History: Anxiety, COPD, Depression, Dyslipidemia, GERD and Hypertension Past Surgical History: Yes Surgical History: Mastectomy Family History Family Medical History: Cancer Social History Do you use any recreational Drugs:: No ROS Review of Systems Constitutional: See HPI and Fatigue Eyes: No Symptoms Reported ENTM: No Symptoms Reported Respiratoy: Short of Breath and Wheezing Cardiovascular: No Symptoms Reported Gastrointestinal/Abdominal: See HPI Genitourinary: No Symptoms Reported Neurological: No Symptoms Reported Musculoskeletal: No Symptoms Reported Integumentary: Bruises Hematologic/Lymphatic: Easy Bruising Endocrine: No Symptoms Reported Psychiatric: No Symptoms Reported PE Vital Signs Vitals: Temperature 97.9 F Pulse Rate 75 Respiratory Rate 24 Blood Pressure [Left Arm] 165/70 Blood Pressure 131/59 O2 Sat by Pulse Oximetry 96 General Limitations: No Limitations General Appearance: Anxious and In Distress Head Head Exam: Normal Inspection Eyes Eye exam: PERRL, EOMI and Other (pallor ) ENT ENT Exam: Mucous Membranes Dry Neck Neck Exam: Normal Inspection Chest Chest Inspection: Normal Inspection and Symmetric Chest Wall Rise Respiratory Respiratory Exam: Prolonged Expiratory Phase Respiratory Exam: Bilateral: Wheezing Cardiovascular Cardiovascular Exam: +S1 and +S2 Abdominal Exam Abdominal Exam: Soft and Tenderness Abdominal Tenderness: Epigastrium and Severe Back Back Exam: Normal Inspection Extremeties Extremities Exam: Full ROM Neurologic Neurological Exam: Alert and Oriented X3 Psychiatric Psychiatric Exam: Anxious Skin Skin Exam: Pallor MDM Additional Information Obtained From Additional information provided by: Family Differential Diagnosis Differential Diagnosis- Considerations may include:: Angina/KS and Gastritus/PUD Other differential diagnosis: copd acute exacerbation,pulmonary embolism COURSE Treatment Treatment: GI cocktail IV solumederol, duoneb, oxygen via NC,IV protonix ,iv dilaudid ROR Labs Reviewed Laboratory Results Reviewed?: Yes Result Diagrams: 01/05/21 14:45 01/05/21 14:45 Laboratory: WBC 10.9 X10^3/uL (3.6-10.0) H 01/05/21 14:45 RBC 3.23 X10^6/uL (3.5-5.4) L 01/05/21 14:45 Hgb 8.0 g/dL (12.0-16.0) L 01/05/21 14:45 Hct 25.7 % (36.0-47.0) L 01/05/21 14:45 MCV 79.7 fL (80.0-100.0) L 01/05/21 14:45 MCH 24.6 pg (27.0-34.0) L 01/05/21 14:45 MCHC 30.9 g/dL (33.0-35.0) L 01/05/21 14:45 RDW 17.8 % (11.6-16.5) H 01/05/21 14:45 Plt Count 347 X10^3/uL (150.0-450.0) 01/05/21 14:45 MPV 8.5 fL (7.4-11.0) 01/05/21 14:45 Neut % (Auto) 80.4 % (42.0-75.0) H 01/05/21 14:45 Lymph % (Auto) 7.5 % (21.0-51.0) L 01/05/21 14:45 [place] % (Auto) 11.1 % (0.0-13.0) 01/05/21 14:45 Eos % (Auto) 0.3 % (0.9-2.9) L 01/05/21 14:45 Baso % (Auto) 0.7 % (0.2-1.0) 01/05/21 14:45 Neut # (Auto) 8.7 x10^3/uL (2.2-4.8) H 01/05/21 14:45 Lymph # (Auto) 0.8 X10^3/uL (1.3-2.9) L 01/05/21 14:45 [place] # (Auto) 1.2 x10^3/uL (0.3-0.8) H 01/05/21 14:45 Eos # (Auto) 0.0 x10^3/uL (0.0-0.2) 01/05/21 14:45 Baso # (Auto) 0.1 X10^3/uL (0.0-0.1) 01/05/21 14:45 Absolute Nucleated RBC 0.2 /100WBC 01/05/21 14:45 D-Dimer 1.61 ug/ml (0.0-0.57) H* 01/05/21 15:03 Sodium 138 mmol/L (136-145) 01/05/21 14:45 Corrected Sodium 138 mmol/L (136-145) 01/05/21 14:45 Potassium 4.0 mmol/L (3.5-5.1) 01/05/21 14:45 Chloride 98 mmol/L (98-107) 01/05/21 14:45 Carbon Dioxide 28.6 mmol/L (21-32) 01/05/21 14:45 BUN 18 mg/dL (7-18) 01/05/21 14:45 Creatinine 2.02 mg/dL (0.55-1.02) H 01/05/21 14:45 Est GFR (MDRD) Af Amer 31 (>60) L 01/05/21 14:45 Est GFR (MDRD) Non-Af 26 (>60) L 01/05/21 14:45 Glucose 111 mg/dL (65-99) H 01/05/21 14:45 Calcium 8.5 mg/dL (8.5-10.1) 01/05/21 14:45 Corrected Calcium 9.7 mg/dL (8.5-10.1) 01/05/21 14:45 Total Bilirubin 0.30 mg/dL (0.2-1.0) 01/05/21 14:45 AST 145 Units/L (15-37) H 01/05/21 14:45 ALT 100 Units/L (12-78) H 01/05/21 14:45 Alkaline Phosphatase 126 Units/L (46-116) H 01/05/21 14:45 Creatine Kinase 32 Units/L (26-192) 01/05/21 14:45 CK-MB (CK-2) < 1.0 ng/mL (0-4.0) 01/05/21 14:45 CK/CKMB % Calc 3.1 % (<4) 01/05/21 14:45 Troponin I < 0.02 ng/mL (0-1.5) 01/05/21 14:45 Total Protein 7.1 g/dL (6.4-8.2) 01/05/21 14:45 Albumin 2.5 g/dL (3.4-5.0) L 01/05/21 14:45 Globulin 4.6 g/dL (2.5-4.5) H 01/05/21 14:45 Albumin/Globulin Ratio 0.5 Ratio (1.1-2.1) L 01/05/21 14:45 Amylase 73 Units/L (25-115) 01/05/21 14:45 Lipase 111 Units/L (73-393) 01/05/21 14:45 TSH 3rd Generation 3.138 uIU/mL (0.358-3.74) 01/05/21 14:45 SARS CoV-2 RNA Rapid RUTH Negative (NEGATIVE) 01/05/21 16:45 Opioid Opioid Risk Tool Total: 0 Total Score Risk Category: Low Risk Copyright: Michael PAINTING predicting aberrant behaviors Diagnosis Discharge Problem: Acute upper gastrointestinal bleeding, Anemia, Acute on chronic kidney failure, Acute exacerbation of chronic obstructive pulmonary disease, Hypoxia
[2021-01-05 16:25] LABS: AMYLASE 73 Units/L (25-115); LIPASE 111 Units/L (73-393)
[2021-01-05] MEDS ORDERED: DEXTROMETHORPHAN POLISTIREX 30 MG/5 ML PO PRN (18:08)
[2021-01-05] MEDS ORDERED: [UNRECOGNIZED DRUG - OTHER] PO PRN (18:08)
--- NOTE | 2021-01-05 18:46 | RAD ---
HISTORYSOBSTUDYCHEST, 1 [facility]COMPARISON[facility] 2018TECHNIQUEChes radiographic imaging, AP portable projection, 1 imageFINDINGSNo cardiomegaly.Mild diffuse increased interstitial markings; as seen on the previous exam.No focal airspace disease.No pleural effusion.No pneumothorax.No acute osseous abnormality.Surgical clips in the right axilla.Spinal fusion hardware in the lower cervical spine.Surgical clips at the GE junction.IMPRESSIONNo imaging findings of acute cardiopulmonary disease or significant interval changes.Electronically signed by: Shon Moreno (Jan 05, 2021 18:44:09)
[2021-01-05 19:17] LABS: HEMOGLOBIN 8.2 g/dL (12.0-16.0)
[2021-01-05] MEDS ORDERED: PULMICORT NEB TX 0.5 MG NEB SCH (21:00)
[2021-01-05] MEDS ORDERED: XOPENEX 1.25 MG/3 ML NEBULE NEB SCH (21:00)
[2021-01-05] MEDS ORDERED: [UNRECOGNIZED DRUG - MIXTURE] INH PRN (21:22)
[2021-01-05] MEDS ORDERED: COZAAR PO SCH (21:22)
[2021-01-05] MEDS ORDERED: ZOCOR TAB 40 MG PO SCH (21:22)
[2021-01-05] MEDS: DUONEB 0.5 MG/3 MG (3 mL) NEB SCH (21:30)
[2021-01-05] MEDS: SOLU-Medrol 125 MG VIAL IVP SCH (21:55)
[2021-01-06] MEDS: DUONEB 0.5 MG/3 MG (3 mL) NEB SCH ×4 (00:15→17:23)
[2021-01-06] MEDS ORDERED: DILAUDID INJ IVP PRN (04:22)
[2021-01-06] MEDS ORDERED: DILAUDID INJ ONE ×2 (04:26→09:42)
[2021-01-06] MEDS ORDERED: PROTONIX INJ 40 MG VIAL ONE (04:27)
[2021-01-06] MEDS: PROTONIX INJ 40 MG VIAL IVP SCH ×2 (05:09→09:28)
[2021-01-06 05:20] LABS: BASOPHILS # (AUTO) 0.2 X10^3/uL (0.0-0.1); BASOPHILS % (AUTO) 0.7 % (0.2-1.0); HEMATOCRIT 25.1 % (36.0-47.0); LYMPHOCYTES # (AUTO) 0.4 X10^3/uL (1.3-2.9); LYMPHOCYTES % (AUTO) 1.5 % (21.0-51.0); MEAN CORPUSCULAR HGB CONC 31.7 g/dL (33.0-35.0); MONOCYTES # (AUTO) 1.1 x10^3/uL (0.3-0.8); MONOCYTES % (AUTO) 4.1 % (0.0-13.0); NEUTROPHILS # (AUTO) 25.4 x10^3/uL (2.2-4.8); NEUTROPHILS % (AUTO) 93.7 % (42.0-75.0); PLATELET COUNT 332 X10^3/uL (150.0-450.0); RED BLOOD COUNT 3.18 X10^6/uL (3.5-5.4); RED CELL DISTRIBUTION WIDTH 17.4 % (11.6-16.5); WHITE BLOOD COUNT 27.2 X10^3/uL (3.6-10.0)
[2021-01-06 05:34] LABS: ALBUMIN 2.3 g/dL (3.4-5.0); CALCIUM 8.5 mg/dL (8.5-10.1); CARBON DIOXIDE 32.1 mmol/L (21-32); COR CA(FOR HYPOALB) 9.9 mg/dL (8.5-10.1); CREATININE 2.38 mg/dL (0.55-1.02); TOTAL PROTEIN 6.7 g/dL (6.4-8.2)
[2021-01-06 05:50] LABS: ANISOCYTOSIS SLIGHT; BAND NEUTROPHILS % 5 % (0-10); HYPOCHROMASIA 1+; MICROCYTOSIS 1+; PLATELET MORPHOLOGY COMMENT NORMAL (NORMAL)
[2021-01-06] MEDS: SOLU-Medrol 125 MG VIAL IVP SCH ×3 (05:55→21:10)
[2021-01-06] MEDS: CARDIZEM CD 180 MG 24-HR PO SCH (09:17)
[2021-01-06] MEDS: DILAUDID INJ IVP PRN ×2 (09:58→14:28)
[2021-01-06] MEDS: NS 1000 ML 1,000 ML IV SCH ×2 (12:44→21:11)
[2021-01-06] MEDS ORDERED: LEVAQUIN PREMIX IV 500 MG 500 MG/100 ML BAG IV STA (12:57)
[2021-01-06] MEDS ORDERED: LEVAQUIN PREMIX IV 500 MG 500 MG/100 ML BAG IV SCH (13:00)
--- NOTE | 2021-01-06 13:33 | CT ---
HISTORYGI BLEED, ELEVATED WBC. HI LFT, ARFSTUDYABDOMEN/PELVIS W/O CONCOMPARISONCT aortic runoff from 03/09/2019.TECHNIQUEMultiple axial images of the abdomen and pelvis were obtained from the lung bases to the pubic symphysis without the administration of IV contrast. Dose reduction techniques including Automated Exposure Control (AEC) and adjustment of mA and kV were utilized.FINDINGSLack of contrast limits evaluation.Moderate right and small left pleural effusions. Left base pleural calcifications. The heart is normal in size. Left lower lobe bronchiectasis with patchy ground-glass opacities. Status post cholecystectomy. The liver, spleen, adrenal glands, and kidneys have a benign noncontrast appearance. Pancreas is moderately atrophic. The urinary bladder appears benign. Status post hysterectomy. Diverticulosis of the colon without evidence of diverticulitis. Moderate amount of stool in the colon. The appendix appears normal. Negative for bowel obstruction. Moderately atherosclerotic normal caliber abdominal aorta. No pathologic adenopathy. No free air, free fluid or collection. Atrophy of the rectus abdominus musculature with surgical clips likely due to hernia repair. Chronic right posterior rib fractures. No acute osseous abnormality.IMPRESSIONNo acute findings intra-abdominal or pelvic. Moderate colonic stool burden.Moderate right and small left pleural effusions. Pleural calcifications consistent with prior asbestos exposure. Bronchiectasis and patchy left base ground-glass opacities may represent sequela of chronic bronchitis, aspiration or infection. Acute left base pneumonia is not excluded.Electronically signed by: Yogesh Garcia (Jan 06, 2021 13:31:48)
[2021-01-06] MEDS ORDERED: ATIVAN TAB 0.5 MG PO PRN (14:28)
--- NOTE | 2021-01-06 15:05 | DR.H&P ---
H&P History & Physical for Day of: H&P Date: 01/06/21 Chief Complaint Chief Complaint: "I'm hurting". Allergies Allergies Allergy/AdvReac Type Severity Reaction Status Date / Time amoxicillin [From Augmentin] Allergy Verified 10/04/18 09:44 aspirin Allergy Verified 10/04/18 09:44 clavulanic acid Allergy Verified 10/04/18 09:44 [From Augmentin] morphine Allergy Verified 10/04/18 09:44 NSAIDS (Non-Steroidal Allergy Verified 10/04/18 09:44 Anti-Inflamma History of Present Illness History of Present Illness: Reports epigastric pain x one month, worse with eating and drinking with nausea and constipation but no vomiting, fevers or chi lls; abruptly worsened prompting trip to ER where she was found to have a hb of 8 and creat of 2.02; she was also wheezing with sats in the low 90s and admits cough and congestion for several weeks as well; she was on an abx outpt which hurt her stomach and was recently switched to levaquin which it sounds like she has not begun. Past Medical History Past Medical History: Anxiety, COPD, Depression, Dyslipidemia, GERD and Hypertension Past Surgical History Surgical History: Mastectomy Family History Family Medical History: Cancer Social History Does any household member use tobacco: No Alcohol Use: None Drug Use: None Medications Home Medications: amoxicillin [From Augmentin] Allergy (Verified 10/04/18 09:44) aspirin Allergy (Verified 10/04/18 09:44) clavulanic acid [From Augmentin] Allergy (Verified 10/04/18 09:44) morphine Allergy (Verified 10/04/18 09:44) NSAIDS (Non-Steroidal Anti-Inflamma Allergy (Verified 10/04/18 09:44) CONTINUE taking the following medications apixaban [Eliquis] 5 mg PO BID 01/06/21 [History] atomoxetine 60 mg PO DAILY 01/06/21 [History] [id number]-abmtbykj-cslvaxuhfl [Breztri Aerosphere] 2 inh INHALATION BID 01/06/21 [History] esomeprazole magnesium 40 mg PO DAILY 01/06/21 [History] gabapentin 300 mg PO DAILY 01/06/21 [History] levofloxacin 500 mg PO DAILY 01/06/21 [History] levothyroxine 50 mcg PO DAILY 01/06/21 [History] linaclotide [Linzess] 145 mcg PO DAILY 01/06/21 [History] losartan 50 mg PO HS 01/06/21 [History] metoprolol tartrate 50 mg PO BID 01/06/21 [History] potassium chloride 10 meq PO DAILY 01/06/21 [History] simvastatin 20 mg PO HS 01/06/21 [History] zolpidem 5 mg PO HS 01/06/21 [History] Labs Result Diagrams: 01/06/21 04:20 01/06/21 04:20 Labs: Laboratory WBC 27.2 X10^3/uL (3.6-10.0) H D 01/06/21 04:20 RBC 3.18 X10^6/uL (3.5-5.4) L 01/06/21 04:20 Hgb 8.0 g/dL (12.0-16.0) L 01/06/21 04:20 Hct 25.1 % (36.0-47.0) L 01/06/21 04:20 MCV 79.0 fL (80.0-100.0) L 01/06/21 04:20 MCH 25.0 pg (27.0-34.0) L 01/06/21 04:20 MCHC 31.7 g/dL (33.0-35.0) L 01/06/21 04:20 RDW 17.4 % (11.6-16.5) H 01/06/21 04:20 Plt Count 332 X10^3/uL (150.0-450.0) 01/06/21 04:20 Plt Count Comment Adequate (ADEQUATE) 01/06/21 04:20 MPV 9.0 fL (7.4-11.0) 01/06/21 04:20 Neut % (Auto) 93.7 % (42.0-75.0) H 01/06/21 04:20 Lymph % (Auto) 1.5 % (21.0-51.0) L 01/06/21 04:20 [place] % (Auto) 4.1 % (0.0-13.0) 01/06/21 04:20 Eos % (Auto) 0.0 % (0.9-2.9) L 01/06/21 04:20 Baso % (Auto) 0.7 % (0.2-1.0) 01/06/21 04:20 Neut # (Auto) 25.4 x10^3/uL (2.2-4.8) H 01/06/21 04:20 Lymph # (Auto) 0.4 X10^3/uL (1.3-2.9) L 01/06/21 04:20 [place] # (Auto) 1.1 x10^3/uL (0.3-0.8) H 01/06/21 04:20 Eos # (Auto) 0.0 x10^3/uL (0.0-0.2) 01/06/21 04:20 Baso # (Auto) 0.2 X10^3/uL (0.0-0.1) H 01/06/21 04:20 Absolute Nucleated RBC 0.1 /100WBC 01/06/21 04:20 Total Counted 100 01/06/21 04:20 Neutrophils % (Manual) 91 % (39-76) H 01/06/21 04:20 Band Neutrophils % 5 % (0-10) 01/06/21 04:20 Lymphocytes % (Manual) 2 % (13-43) L 01/06/21 04:20 Monocytes % (Manual) 2 % (4-9) L 01/06/21 04:20 Plt Morphology Comment Normal (NORMAL) 01/06/21 04:20 RBC Morphology Abnormal (NORMAL) A 01/06/21 04:20 Hypochromasia 1+ A 01/06/21 04:20 Anisocytosis Slight A 01/06/21 04:20 Microcytosis 1+ A 01/06/21 04:20 D-Dimer 1.61 ug/ml (0.0-0.57) H* 01/05/21 15:03 Sodium 137 mmol/L (136-145) 01/06/21 04:20 Corrected Sodium 138 mmol/L (136-145) 01/06/21 04:20 Potassium 5.1 mmol/L (3.5-5.1) 01/06/21 04:20 Chloride 99 mmol/L (98-107) 01/06/21 04:20 Carbon Dioxide 32.1 mmol/L (21-32) H 01/06/21 04:20 BUN 27 mg/dL (7-18) H 01/06/21 04:20 Creatinine 2.38 mg/dL (0.55-1.02) H 01/06/21 04:20 Est GFR (MDRD) Af Amer 26 (>60) L 01/06/21 04:20 Est GFR (MDRD) Non-Af 21 (>60) L 01/06/21 04:20 Glucose 158 mg/dL (65-99) H 01/06/21 04:20 POC Glucose (mg/dL) 161 mg/dL (65-99) H 01/05/21 21:20 Lactic Acid 1.0 mmol/L (0.4-2.0) 01/06/21 13:58 Calcium 8.5 mg/dL (8.5-10.1) 01/06/21 04:20 Corrected Calcium 9.9 mg/dL (8.5-10.1) 01/06/21 04:20 Total Bilirubin 0.30 mg/dL (0.2-1.0) 01/06/21 04:20 AST 164 Units/L (15-37) H 01/06/21 04:20 ALT 108 Units/L (12-78) H 01/06/21 04:20 Alkaline Phosphatase 128 Units/L (46-116) H 01/06/21 04:20 Creatine Kinase 32 Units/L (26-192) 01/05/21 14:45 CK-MB (CK-2) < 1.0 ng/mL (0-4.0) 01/05/21 14:45 CK/CKMB % Calc 3.1 % (<4) 01/05/21 14:45 Troponin I < 0.02 ng/mL (0-1.5) 01/05/21 14:45 Total Protein 6.7 g/dL (6.4-8.2) 01/06/21 04:20 Albumin 2.3 g/dL (3.4-5.0) L 01/06/21 04:20 Globulin 4.4 g/dL (2.5-4.5) 01/06/21 04:20 Albumin/Globulin Ratio 0.5 Ratio (1.1-2.1) L 01/06/21 04:20 Amylase 73 Units/L (25-115) 01/05/21 14:45 Lipase 111 Units/L (73-393) 01/05/21 14:45 TSH 3rd Generation 3.138 uIU/mL (0.358-3.74) 01/05/21 14:45 SARS CoV-2 RNA Rapid RUTH Negative (NEGATIVE) 01/05/21 16:45 Review of Systems Constitutional: See HPI and Malaise Eyes: No Symptoms Reported ENT: No Symptoms Reported Respiratory: See HPI Cardiovascular: Chest Pain (chronic and unchanged) Gastrointestinal: See HPI Genitourinary: No Symptoms Reported Neurological: No Symptoms Reported Physical Exam Vital Signs: Temperature 98.2 F Pulse Rate [Left] 80 Pulse Rate 68 Respiratory Rate 24 Blood Pressure [Left Arm] 122/51 Blood Pressure 131/59 O2 Sat by Pulse Oximetry 93 Oriented: Normal, Time, Person and Place Eyes: Normal Respiratory: Clear Throughout and Diminished Throughout Auscultation: Bowel Sounds: Normal Palpation: Normal (obese) Tenderness: Diffuse and Mild Skin: Normal Mood Description: Flat (grunting and groaning and c/o pain) Assessment/Plan (1) Sepsis: Qualifiers: Sepsis type: sepsis due to unspecified organism Sepsis acute organ dysfunction status: with acute organ dysfunction Severe sepsis acute organ dysfunction type: acute renal failure Acute renal failure type: unspecified Severe sepsis shock status: without septic shock Qualified Code(s): A41.9 - Sepsis, unspecified organism; R65.20 - Severe sepsis without septic shock; N17.9 - Acute kidney failure, unspecified Status: Acute Plan: She has an acute rise in wbc from 10.7 to 27 along with rr 24, e levated lfts and creatinine, low sats , and copd exacerbation; add levaquin, adjust fluids, obtain ct abd/pelvis, bc x 2 and lactic acid; follow closely. (2) Bronchiectasis: Qualifiers: Bronchiectasis type: with acute lower respiratory infection Qualified Code(s): J47.0 - Bronchiectasis with acute lower respiratory infection Status: Acute Plan: Abx as above. (3) Acute exacerbation of chronic obstructive pulmonary disease: Status: Acute Plan: Abx and steroids. (4) Hypoxia: Status: Acute Plan: Continue oxygen prn. (5) Acute on chronic kidney failure: Qualifiers: Acute renal failure type: unspecified Chronic kidney disease stage: stage 2 (mild) Qualified Code(s): N17.9 - Acute kidney failure, unspecified; N18.2 - Chronic kidney disease, stage 2 (mild) Status: Acute Plan: Fluids and follow. (6) Constipation: Qualifiers: Constipation type: drug induced constipation Qualified Code(s): K59.03 - Drug induced constipation Status: Acute Plan: Possible source of abd pain and most likely opiod induced; linzess, miralax no relief; gi consult. (7) Elevated LFTs: Status: Acute Plan: Fluids, hepatitis panel and follow. (8) Lymphedema: Status: Acute Plan: RUE s/p mastectomy. (9) H/O right mastectomy: Status: Acute (10) History of right breast cancer: Status: Acute Review H&P Reviewed: Yes Patient was examined?: Yes
[2021-01-06] MEDS: NEURONTIN CAP 300 MG PO SCH (15:24)
[2021-01-06] MEDS: LINZESS PO SCH (15:24)
[2021-01-06] MEDS ORDERED: AMBIEN PO PRN ×2 (15:37→21:00)
[2021-01-06] MEDS: NexIUM PO SCH ×2 (15:42→15:44)
[2021-01-06 19:52] VITALS: BMI 27.1
[2021-01-06] MEDS ORDERED: COLACE CAP 100 MG PO ONE (20:08)
[2021-01-06 20:21] LABS: BILIRUBIN,URINE 1+ (NEGATIVE); BLOOD/HEMOGLOBIN,URINE NEGATIVE (NEGATIVE); GLUCOSE, URINE NEGATIVE (NEGATIVE); KETONES,URINE NEGATIVE (NEGATIVE); LEUKOCYTE ESTERASE ,URINE 1+ (NEGATIVE); NITRITES,URINE NEGATIVE (NEGATIVE); PROTEIN,URINE 2+ (NEGATIVE); UROBILINOGEN,URINE NORMAL (NORMAL)
[2021-01-06 20:22] LABS: APPEARANCE,URINE CLEAR (CLEAR); COLOR,URINE DARK YELLOW (YELLOW)
[2021-01-06 20:37] LABS: BACTERIA,URINE 1+ /HPF (NEGATIVE); HYALINE CASTS, URINE FEW /LPF (NEGATIVE); RBC,URINE 0-2 /HPF (0-3); SQUAMOUS EPITHELIAL CELL,UR FEW /HPF (NEGATIVE)
[2021-01-06] MEDS ORDERED: ZOCOR TAB 20 MG PO SCH (21:00)
[2021-01-06] MEDS ORDERED: COZAAR PO SCH ×2 (21:00)
[2021-01-06] MEDS ORDERED: LOPRESSOR TAB 50 MG PO SCH (21:00)
[2021-01-06] MEDS ORDERED: ZOCOR TAB 40 MG PO SCH (21:00)
[2021-01-06] MEDS ORDERED: PATIENT'S HOME MEDICATION (Budesonide-Glycopyr-Formoterol [Breztri Aerosphere] 160-9-4.8 m INH SCH (21:00)
[2021-01-06] MEDS: COLACE CAP 100 MG PO SCH (21:04)
[2021-01-06] MEDS: LOPRESSOR TAB 50 MG PO SCH (21:08)
[2021-01-06] MEDS: MILK OF MAGNESIA PO PRN (21:50)
[2021-01-07] MEDS: DUONEB 0.5 MG/3 MG (3 mL) NEB SCH ×4 (00:04→16:22)
[2021-01-07] MEDS ORDERED: DULCOLAX SUPPOSITORY 10 MG RECTAL ONE (00:48)
[2021-01-07] MEDS ORDERED: DULCOLAX SUPPOSITORY 10 MG ONE (00:52)
[2021-01-07] MEDS: NS 1000 ML 1,000 ML IV SCH (05:14)
[2021-01-07] MEDS: SOLU-Medrol 125 MG VIAL IVP SCH ×2 (05:14→14:44)
[2021-01-07] MEDS: DILAUDID INJ IVP PRN ×2 (05:50→13:06)
[2021-01-07 06:12] LABS: BASOPHILS # (AUTO) 0.2 X10^3/uL (0.0-0.1); BASOPHILS % (AUTO) 0.6 % (0.2-1.0); HEMATOCRIT 26.3 % (36.0-47.0); LYMPHOCYTES # (AUTO) 0.6 X10^3/uL (1.3-2.9); LYMPHOCYTES % (AUTO) 2.3 % (21.0-51.0); MEAN CORPUSCULAR HGB CONC 30.4 g/dL (33.0-35.0); MEAN CORPUSCULAR VOLUME 78.8 fL (80.0-100.0); MEAN PLATELET VOLUME 9.1 fL (7.4-11.0); MONOCYTES # (AUTO) 1.3 x10^3/uL (0.3-0.8); MONOCYTES % (AUTO) 4.9 % (0.0-13.0); NEUTROPHILS # (AUTO) 25.3 x10^3/uL (2.2-4.8); NEUTROPHILS % (AUTO) 92.2 % (42.0-75.0); PLATELET COUNT 358 X10^3/uL (150.0-450.0); RED BLOOD COUNT 3.33 X10^6/uL (3.5-5.4); RED CELL DISTRIBUTION WIDTH 17.5 % (11.6-16.5); WHITE BLOOD COUNT 27.4 X10^3/uL (3.6-10.0)
[2021-01-07 06:20] LABS: ALBUMIN 2.1 g/dL (3.4-5.0); CARBON DIOXIDE 31.7 mmol/L (21-32); COR CA(FOR HYPOALB) 9.5 mg/dL (8.5-10.1); CREATININE 3.18 mg/dL (0.55-1.02); TOTAL PROTEIN 6.5 g/dL (6.4-8.2)
[2021-01-07] MEDS ORDERED: SYNTHROID 50 mcg TAB PO SCH ×2 (06:30→09:00)
[2021-01-07 06:48] LABS: BAND NEUTROPHILS % 10 % (0-10); PLATELET MORPHOLOGY COMMENT NORMAL (NORMAL)
[2021-01-07] MEDS ORDERED: LEVAQUIN PREMIX IV 250 MG 250 MG/50 ML BAG IV SCH (09:00)
[2021-01-07] MEDS ORDERED: MICRO K EXTEN CAP 10 MEQ PO SCH (09:00)
[2021-01-07] MEDS ORDERED: PULMICORT NEB TX 0.5 MG NEB SCH (09:00)
[2021-01-07] MEDS ORDERED: NEURONTIN CAP 300 MG PO SCH (09:00)
[2021-01-07] MEDS ORDERED: ATOMOXETINE 60 MG PO SCH (09:00)
[2021-01-07] MEDS ORDERED: LINZESS PO SCH (09:00)
[2021-01-07] MEDS ORDERED: NS 1000 ML 1,000 ML IV SCH (09:09)
[2021-01-07] MEDS: MILK OF MAGNESIA PO PRN (09:25)
[2021-01-07] MEDS: LINZESS PO SCH (09:26)
[2021-01-07] MEDS: CARDIZEM CD 180 MG 24-HR PO SCH (09:28)
[2021-01-07] MEDS: LOPRESSOR TAB 50 MG PO SCH (09:29)
[2021-01-07] MEDS: NEURONTIN CAP 300 MG PO SCH (09:31)
[2021-01-07] MEDS: COLACE CAP 100 MG PO SCH (09:31)
[2021-01-07] MEDS: PROTONIX INJ 40 MG VIAL IVP SCH (09:31)
[2021-01-07] MEDS ORDERED: SALINE 3% 15 ML NEB TX NEB ONE (09:42)
--- NOTE | 2021-01-07 11:25 | PCM.PROG ---
Progress Note - Progress Note for Day of Date of Exam: 01/07/21 - Subjective Subjective: The patient is a 75yo WF who is admitted secondary to abdominal pain. Patient is noted to be anemic. Denies changes in bowel habits or foul smell with BMs. Does continue to complain of abd pain. Patient has history of COPD and states that she is SOB normally. Denies increased SOB. Patient does have congested cough. Urine output improved with increase in fluids. denies any other complaints - Past Medical Family Social History Past Med/Fam/Surg Hx: No changes since H&P Allergies: Allergies amoxicillin [From Augmentin] Allergy (Verified 10/04/18 09:44) aspirin Allergy (Verified 10/04/18 09:44) PT. STATES "IT UPSETS MY STOMACH BUT I CAN TAKE IT." clavulanic acid [From Augmentin] Allergy (Verified 10/04/18 09:44) morphine Allergy (Verified 10/04/18 09:44) NSAIDS (Non-Steroidal Anti-Inflamma Allergy (Verified 10/04/18 09:44) - Review of Systems ROS: No change since H&P - Vital Signs and I&O's Vital Signs: Temperature 97.9 F Pulse Rate [Left] 77 Pulse Rate 78 Respiratory Rate 20 Blood Pressure [Left Arm] 119/57 Blood Pressure 131/59 O2 Sat by Pulse Oximetry 95 Intake and Output: Intake & Output 01/04/21 01/05/21 01/06/21 01/07/21 23:59 23:59 23:59 23:59 Intake Total 50 / 50 686 / 686 640 / 640 Output Total 350 / 350 75 / 75 Balance 50 / 50 336 / 336 565 / 565 - Physical Exam Oriented: Normal, Time, Person, Place Eyes: Normal Ear: Normal Nose: Normal Throat: Normal Respiratory: Generalized, [place] Cardiovascular: Normal : Other ([place]) Auscultation: Bowel Sounds: Normal Palpation: Normal Tenderness: Diffuse, Mild Skin: Normal Musculoskeletal: Normal Psychiatric: Normal Mood Description: Flat (grunting and groaning and c/o pain) Affect: Normal Speech Pattern: Clear, Appropriate - Laboratory and Diagnostics Result Diagrams: 01/07/21 05:23 01/07/21 05:23 Labs: Laboratory WBC 27.4 X10^3/uL (3.6-10.0) H 01/07/21 05:23 RBC 3.33 X10^6/uL (3.5-5.4) L 01/07/21 05:23 Hgb 8.0 g/dL (12.0-16.0) L 01/07/21 05:23 Hct 26.3 % (36.0-47.0) L 01/07/21 05:23 MCV 78.8 fL (80.0-100.0) L 01/07/21 05:23 MCH 24.0 pg (27.0-34.0) L 01/07/21 05:23 MCHC 30.4 g/dL (33.0-35.0) L 01/07/21 05:23 RDW 17.5 % (11.6-16.5) H 01/07/21 05:23 Plt Count 358 X10^3/uL (150.0-450.0) 01/07/21 05:23 Plt Count Comment Adequate (ADEQUATE) 01/07/21 05:23 MPV 9.1 fL (7.4-11.0) 01/07/21 05:23 Neut % (Auto) 92.2 % (42.0-75.0) H 01/07/21 05:23 Lymph % (Auto) 2.3 % (21.0-51.0) L 01/07/21 05:23 [place] % (Auto) 4.9 % (0.0-13.0) 01/07/21 05:23 Eos % (Auto) 0.0 % (0.9-2.9) L 01/07/21 05:23 Baso % (Auto) 0.6 % (0.2-1.0) 01/07/21 05:23 Neut # (Auto) 25.3 x10^3/uL (2.2-4.8) H 01/07/21 05:23 Lymph # (Auto) 0.6 X10^3/uL (1.3-2.9) L 01/07/21 05:23 [place] # (Auto) 1.3 x10^3/uL (0.3-0.8) H 01/07/21 05:23 Eos # (Auto) 0.0 x10^3/uL (0.0-0.2) 01/07/21 05:23 Baso # (Auto) 0.2 X10^3/uL (0.0-0.1) H 01/07/21 05:23 Absolute Nucleated RBC 0.1 /100WBC 01/07/21 05:23 Total Counted 100 01/07/21 05:23 Neutrophils % (Manual) 76 % (39-76) 01/07/21 05:23 Band Neutrophils % 10 % (0-10) 01/07/21 05:23 Lymphocytes % (Manual) 4 % (13-43) L 01/07/21 05:23 Monocytes % (Manual) 10 % (4-9) H 01/07/21 05:23 Plt Morphology Comment Normal (NORMAL) 01/07/21 05:23 RBC Morphology Normal (NORMAL) 01/07/21 05:23 Hypochromasia 1+ A 01/06/21 04:20 Anisocytosis Slight A 01/06/21 04:20 Microcytosis 1+ A 01/06/21 04:20 D-Dimer 1.61 ug/ml (0.0-0.57) H* 01/05/21 15:03 Sodium 135 mmol/L (136-145) L 01/07/21 05:23 Corrected Sodium 135 mmol/L (136-145) L 01/07/21 05:23 Potassium 4.9 mmol/L (3.5-5.1) 01/07/21 05:23 Chloride 98 mmol/L (98-107) 01/07/21 05:23 Carbon Dioxide 31.7 mmol/L (21-32) 01/07/21 05:23 BUN 49 mg/dL (7-18) H 01/07/21 05:23 Creatinine 3.18 mg/dL (0.55-1.02) H 01/07/21 05:23 Est GFR (MDRD) Af Amer 18 (>60) L 01/07/21 05:23 Est GFR (MDRD) Non-Af 15 (>60) L 01/07/21 05:23 Glucose 116 mg/dL (65-99) H 01/07/21 05:23 POC Glucose (mg/dL) 161 mg/dL (65-99) H 01/05/21 21:20 Lactic Acid 1.0 mmol/L (0.4-2.0) 01/06/21 13:58 Calcium 8.0 mg/dL (8.5-10.1) L 01/07/21 05:23 Corrected Calcium 9.5 mg/dL (8.5-10.1) 01/07/21 05:23 Total Bilirubin 0.40 mg/dL (0.2-1.0) 01/07/21 05:23 AST 149 Units/L (15-37) H 01/07/21 05:23 ALT 114 Units/L (12-78) H 01/07/21 05:23 Alkaline Phosphatase 125 Units/L (46-116) H 01/07/21 05:23 Creatine Kinase 32 Units/L (26-192) 01/05/21 14:45 CK-MB (CK-2) < 1.0 ng/mL (0-4.0) 01/05/21 14:45 CK/CKMB % Calc 3.1 % (<4) 01/05/21 14:45 Troponin I < 0.02 ng/mL (0-1.5) 01/05/21 14:45 B-Natriuretic Peptide 186 pg/mL (0-79) H 01/07/21 05:26 Total Protein 6.5 g/dL (6.4-8.2) 01/07/21 05:23 Albumin 2.1 g/dL (3.4-5.0) L 01/07/21 05:23 Globulin 4.4 g/dL (2.5-4.5) 01/07/21 05:23 Albumin/Globulin Ratio 0.5 Ratio (1.1-2.1) L 01/07/21 05:23 Amylase 73 Units/L (25-115) 01/05/21 14:45 Lipase 111 Units/L (73-393) 01/05/21 14:45 TSH 3rd Generation 3.138 uIU/mL (0.358-3.74) 01/05/21 14:45 Specimen Type Catherized urine 01/06/21 19:50 Urine Color Dark yellow (YELLOW) 01/06/21 19:50 Urine Appearance Clear (CLEAR) 01/06/21 19:50 Urine pH 5.0 (5.0 - 8.0) 01/06/21 19:50 Ur Specific [place] 1.025 (1.000-1.030) 01/06/21 19:50 Urine Protein 2+ (NEGATIVE) 01/06/21 19:50 Urine Glucose (UA) Negative (NEGATIVE) 01/06/21 19:50 Urine Ketones Negative (NEGATIVE) 01/06/21 19:50 Urine Occult Blood Negative (NEGATIVE) 01/06/21 19:50 Urine Nitrite Negative (NEGATIVE) 01/06/21 19:50 Urine Bilirubin 1+ (NEGATIVE) 01/06/21 19:50 Urine Urobilinogen Normal (NORMAL) 01/06/21 19:50 Ur Leukocyte Esterase 1+ (NEGATIVE) 01/06/21 19:50 Urine RBC 0-2 /HPF (0-3) 01/06/21 19:50 Urine WBC 3-5 /HPF (0-5) 01/06/21 19:50 Ur Squamous Epith Cells Few /HPF (NEGATIVE) 01/06/21 19:50 Urine Bacteria 1+ /HPF (NEGATIVE) 01/06/21 19:50 Hyaline Casts Few /LPF (NEGATIVE) 01/06/21 19:50 Ur Culture Indicated? No/not indicated 01/06/21 19:50 SARS CoV-2 RNA Rapid RUTH Negative (NEGATIVE) 01/05/21 16:45 - Plan (1) Acute on chronic kidney failure Status: Acute Qualifiers: Acute renal failure type: unspecified Chronic kidney disease stage: stage 2 (mild) Qualified Code(s): N17.9 - Acute kidney failure, unspecified; N18.2 - Chronic kidney disease, stage 2 (mild) Plan: Fluids and follow. (2) COPD (chronic obstructive pulmonary disease) Status: Acute Qualifiers: COPD type: COPD with acute exacerbation Qualified Code(s): J44.1 - Chronic obstructive pulmonary disease with (acute) exacerbation Plan: CXR, Nebs, Steriods, O2 (3) Anemia Status: Acute Plan: GI consult. Monitor HGB (4) Elevated LFTs Status: Acute Plan: Fluids, hepatitis panel and follow.
--- NOTE | 2021-01-07 11:56 | RAD ---
CHEST, 1 VIEWHISTORY: SOBStudy: AP view of the chest.Comparison:January 05, 2021Findings:Cardiomegaly. No focal consolidations, pleural effusions or pneumothorax. Osseous structures demonstrate no acute abnormality. Bilateral hyperexpansion and interstitial prominence.IMPRESSION:1. No acute cardiopulmonary process.2. Findings of COPD.Electronically signed by: ROHINI MONSON (Jan 07, 2021 11:54:30)
[2021-01-07 16:20] LABS: CALCIUM 8.1 mg/dL (8.5-10.1); CARBON DIOXIDE 30.4 mmol/L (21-32); CREATININE 3.48 mg/dL (0.55-1.02)
[2021-01-07] MEDS ORDERED: ZITHROMAX INJ 500 MG VIAL 500 MG in D5W 250 ML IV 250 ML IV SCH (17:00)
[2021-01-07 17:24] VITALS: BP 154/67
[2021-01-07 18:49] LABS: ABG BASE EXCESS 2.1 mmol/L (-2.0-2.0)
[2021-01-07 18:50] LABS: ABG ALLEN TEST POS; ABG HCO3 31.9 mmol/L (22-26)
[2021-01-07] MEDS ORDERED: DOPAMINE IV PREMIX 400 MG/250 ML 400 MG/250 ML BAG IV ONE (19:34)
[2021-01-07] MEDS ORDERED: LEVOPHED INJ ONE ×2 (19:44→19:50)
[2021-01-07] MEDS ORDERED: AMIDATE INJ 40 MG VIAL ONE (19:45)
[2021-01-07] MEDS ORDERED: QUELICIN (OR ANECTINE) ONE (19:45)
[2021-01-07 19:46] LABS: BASOPHILS % (AUTO) 0 % (0.2-1.0); HEMATOCRIT 23.3 % (36.0-47.0); HEMOGLOBIN 7.1 g/dL (12.0-16.0); LYMPHOCYTES # (AUTO) 0.7 X10^3/uL (1.3-2.9); LYMPHOCYTES % (AUTO) 3.4 % (21.0-51.0); MEAN CORPUSCULAR HEMOGLOBIN 24.4 pg (27.0-34.0); MEAN CORPUSCULAR HGB CONC 30.5 g/dL (33.0-35.0); MEAN CORPUSCULAR VOLUME 80.1 fL (80.0-100.0); MEAN PLATELET VOLUME 8.7 fL (7.4-11.0); MONOCYTES # (AUTO) 0.8 x10^3/uL (0.3-0.8); MONOCYTES % (AUTO) 3.7 % (0.0-13.0); NEUTROPHILS # (AUTO) 20.2 x10^3/uL (2.2-4.8); NEUTROPHILS % (AUTO) 92.9 % (42.0-75.0); PLATELET COUNT 387 X10^3/uL (150.0-450.0); RED BLOOD COUNT 2.91 X10^6/uL (3.5-5.4); RED CELL DISTRIBUTION WIDTH 17.7 % (11.6-16.5); WHITE BLOOD COUNT 21.7 X10^3/uL (3.6-10.0)
[2021-01-07] MEDS ORDERED: D5W 250 ML IV 250 ML IV ONE (19:50)
[2021-01-07] MEDS ORDERED: INVANZ INJ 1 GM VIAL 1 GM in NS 100 ML IV + SPIKE MINIBAG* 100 ML IV SCH (20:00)
[2021-01-07 20:02] LABS: ANISOCYTOSIS 1+; BAND NEUTROPHILS % 17 % (0-10); HYPOCHROMASIA 2+; METAMYELOCYTES % 2; PLATELET MORPHOLOGY COMMENT NORMAL (NORMAL); POIKILOCYTOSIS 1+
[2021-01-07 20:03] LABS: LACTIC ACID 3.1 mmol/L (0.4-2.0); TOXIC GRANULATION SLIGHT
--- NOTE | 2021-01-07 20:11 | DR.CONSULT ---
Consult - Consultation for Day of: Date: 01/07/21 - Chief Complaint Chief Complaint: Patient referred for epigastric pain. Patient with AMS. Unable to obtain accurate ROS - History of Present Illness History of Present Illness: Patient is a 75 yo female who was referred for epigastric pain. Patient with AMS. Patient on BIPAP. Unable to obtain accurate ROS. Family states that she has been complaining of abdominal pain and constipation and that she has not had a BM since 01/02 despite dulcolax and Milk of Magnesia. Abdomen and pelvis CT showed No acute findings intra-abdominal or pelvic. Moderate colonic stool burden. Hgb 8.0, Hct 26.3, Bse937, BUN 49, Creatinine 3.18, T. Bili 0.4, AST 149, ALT 114, ALP 125. - Past Medical History Past Medical History: Hypertension, Dyslipidemia, Depression, Anxiety, COPD, GERD - Past Surgical History Surgical History: Mastectomy - Family History Family Medical History: Cancer - Social History Does any household member use tobacco: No Alcohol Use: None Drug Use: None - Medications Home Medications: amoxicillin [From Augmentin] Allergy (Verified 10/04/18 09:44) aspirin Allergy (Verified 10/04/18 09:44) clavulanic acid [From Augmentin] Allergy (Verified 10/04/18 09:44) morphine Allergy (Verified 10/04/18 09:44) NSAIDS (Non-Steroidal Anti-Inflamma Allergy (Verified 10/04/18 09:44) CONTINUE taking the following medications apixaban [Eliquis] 5 mg PO BID 01/06/21 [History] atomoxetine 60 mg PO DAILY 01/06/21 [History] [id number]-rfgcpmuq-fnodrcbqqu [Breztri Aerosphere] 2 inh INHALATION BID 01/06/21 [History] esomeprazole magnesium 40 mg PO DAILY 01/06/21 [History] gabapentin 300 mg PO DAILY 01/06/21 [History] levofloxacin 500 mg PO DAILY 01/06/21 [History] levothyroxine 50 mcg PO DAILY 01/06/21 [History] linaclotide [Linzess] 145 mcg PO DAILY 01/06/21 [History] losartan 50 mg PO HS 01/06/21 [History] metoprolol tartrate 50 mg PO BID 01/06/21 [History] potassium chloride 10 meq PO DAILY 01/06/21 [History] simvastatin 20 mg PO HS 01/06/21 [History] zolpidem 5 mg PO HS 01/06/21 [History] - Review of Systems Gastrointestinal: See HPI - Physical Exam Vital Signs: Temperature 98.9 F Pulse Rate [Left] 74 Pulse Rate 78 Respiratory Rate 24 Blood Pressure [Left Arm] 154/67 Blood Pressure 131/59 O2 Sat by Pulse Oximetry 93 Oriented: Not Oriented Eyes: Normal Ear: Normal Nose: Normal Throat: Normal Respiratory: Clear Throughout Cardiovascular: Normal Auscultation: Bowel Sounds: Normal Palpation: Other (abdominal distention, abdomen firm). negative: Spleen Enlarged, Liver Enlarged, Mass Pulsatile Tenderness: Normal (non tender) Skin: Normal Musculoskeletal: Normal Psychiatric: Anxiety Mood Description: Anxious Affect: Anxious - Plan Plan: Assessment. 1. Abdominal pain r/o gastric ulcer. 2. Constipation. 3.Anemia r/o GI loss. Plan. 1. Egd tomm if patient stable from respiratory standpoint. 2. Dulcolax supp x2, Fleet enema when more stable. 3. Hemoccult, Monitor Hgb, Transfuse as needed. Plan reviewed with Dr. Christopher - Allergies Allergies/Adverse Reactions: Allergies Allergy/AdvReac Type Severity Reaction Status Date / Time amoxicillin [From Augmentin] Allergy Verified 10/04/18 09:44 aspirin Allergy Verified 10/04/18 09:44 clavulanic acid Allergy Verified 10/04/18 09:44 [From Augmentin] morphine Allergy Verified 10/04/18 09:44 NSAIDS (Non-Steroidal Allergy Verified 10/04/18 09:44 Anti-Inflamma
[2021-01-07 20:31] LABS: ALANINE AMINOTRANSFERASE 101 Units/L (12-78); ALBUMIN 1.8 g/dL (3.4-5.0); ALKALINE PHOSPHATASE 129 Units/L (46-116); ASPARTATE AMINO TRANSFERASE 132 Units/L (15-37); BLOOD UREA NITROGEN 60 mg/dL (7-18); CALCIUM 7.8 mg/dL (8.5-10.1); CARBON DIOXIDE 33.2 mmol/L (21-32); CHLORIDE 100 mmol/L (98-107); CKMB % 2.3 % (<4); COR CA(FOR HYPOALB) 9.6 mg/dL (8.5-10.1); COR NA(FOR HYPERGLY) 134 mmol/L (136-145); CREATINE KINASE 69 Units/L (26-192); CREATINE KINASE MB 1.6 ng/mL (0-4.0); FREE T4 (FREE THYROXINE) 1.38 ng/dL (0.76-1.46); SODIUM 133 mmol/L (136-145); TOTAL PROTEIN 5.8 g/dL (6.4-8.2); TROPONIN I < 0.02 ng/mL (0-1.5); TSH (3RD GENERATION) 0.705 uIU/mL (0.358-3.74); URIC ACID 7.9 mg/dL (2.6-6.0); eGFR NON BLACK RACES 12 (>60)
--- NOTE | 2021-01-07 20:46 | RAD ---
EXAM: CHEST X-RAYHISTORY: Central line placement. Respiratory distress.TECHNIQUE: AP chest x-ray dated January 07, 2021 at 6:53 PM.COMPARISON: CXR dated January 07, 2021 at 9:40 AM.FINDINGS:There is interval placement of a left subclavian central venous catheter with distal tip in SVC (adequate position). Recommend careful clinical correlation to ensure venous blood return.There is severe aortic atherosclerosis. The heart size is upper limits of normal. There is significant interval progression of extensive bilateral patchy lung parenchymal infiltrates, especially in the right middle lobe lung arita; DDx includes cardiogenic or noncardiogenic mild to moderate pulmonary edema/congestion, and acute multi lobar pneumonia in the appropriate clinical setting.There is no gross pleural effusion, or pneumothorax seen. The visualized bony structures are within normal limits.IMPRESSION:1. Interval placement of a left subclavian central venous catheter with distal tip in SVC (adequate position). Recommend careful clinical correlation to ensure venous blood return.2. Significant interval progression of extensive bilateral patchy lung parenchymal infiltrates, especially in the right middle lobe lung arita; DDx includes cardiogenic or noncardiogenic mild to moderate pulmonary edema/congestion, and acute multi lobar pneumonia in the appropriate clinical setting.3. Recommend clinical correlation and appropriate follow-up CXR evaluation to ensure interval clearance as clinically warranted.4. Consider follow-up noncontrast chest CT to rule out Covid pneumonia if clinically warranted.Electronically signed by: Juana Brennan (Jan 07, 2021 20:44:04)
[2021-01-07] MEDS ORDERED: DULCOLAX SUPPOSITORY 10 MG RECTAL SCH (21:00)
[2021-01-07] MEDS ORDERED: LOVENOX INJ 40 MG SYR SC SCH (21:00)
[2021-01-09 06:57] LABS: HEPATITIS B SURFACE ANTIGEN Negative (Negative)
--- NOTE | 2021-01-12 14:17 | DR.DECEASE ---
Form - Labs Result Diagrams: 01/07/21 19:30 01/07/21 19:30 - Expiration Expiration Date: 01/07/21 Expiration Time: 20:22 Pronounced by: Dr. Rosales Preliminary Cause of : Cardiopulmonary Arrest - Admission Diagnosis Patient Problems: Problems Acute respiratory failure (Acute) J96.00 COPD with acute exacerbation (Acute) J44.1 History of right breast cancer (Acute) Z85.3 H/O right mastectomy (Acute) Z90.11 Lymphedema (Acute) I89.0 Elevated LFTs (Acute) R79.89 Constipation (Acute) K59.00 Bronchiectasis (Acute) J47.9 Sepsis (Acute) A41.9 rib fx (Active) Chest pain (Acute) R07.9 Prerenal azotemia (Acute) R79.89 SOB (shortness of breath) (Acute) R06.02 Hypertension (Acute) I10 History of atrial paroxysmal tachycardia (Acute) Z86.79 Bradycardia (Acute) R00.1 Headache (Acute) R51 Dizziness (Acute) R42 Vision blurred (Acute) H53.8 A-fib (Acute) I48.91 Benign essential HTN (Acute) I10 COPD (chronic obstructive pulmonary disease) (Acute) J44.9 HTN (hypertension) (Acute) I10 Abdominal pain (Acute) R10.9 CAD (coronary artery disease) (Acute) I25.10 COPD (chronic obstructive pulmonary disease) (Acute) J44.9 Acute upper gastrointestinal bleeding (Acute) K92.2 Anemia (Acute) D64.9 Acute on chronic kidney failure (Acute) N17.9, N18.9 Acute exacerbation of chronic obstructive pulmonary disease (Acute) J44.1 Hypoxia (Acute) R09.02 - Discharge Diagnosis Patient Problems: Current Active Problems Problem Status Onset Elevated LFTs COPD (chronic obstructive pulmonary disease) Acute upper gastrointestinal bleeding Anemia Acute on chronic kidney failure Acute exacerbation of chronic obstructive pulmonary disease Hypoxia - Home Medications Home Medications: Home Medications Medication Instructions Recorded Type apixaban [Eliquis] 5 mg PO BID 01/06/21 History atomoxetine 60 mg PO DAILY 01/06/21 History qvryusewou-dngjtrrd-pgrqqooikq 2 inh INHALATION BID 01/06/21 History [Breztri Aerosphere] esomeprazole magnesium 40 mg PO DAILY 01/06/21 History gabapentin 300 mg PO DAILY 01/06/21 History levofloxacin 500 mg PO DAILY 01/06/21 History levothyroxine 50 mcg PO DAILY 01/06/21 History linaclotide [Linzess] 145 mcg PO DAILY 01/06/21 History losartan 50 mg PO HS 01/06/21 History metoprolol tartrate 50 mg PO BID 01/06/21 History potassium chloride 10 meq PO DAILY 01/06/21 History simvastatin 20 mg PO HS 01/06/21 History zolpidem 5 mg PO HS 01/06/21 History
--- NOTE | 2021-01-12 14:23 | DR.DECEASE ---
Form - Labs Result Diagrams: 01/07/21 19:30 01/07/21 19:30 - Hospital Course Hospital Course: As stated in the H&P the patient has a h/o multiple medical problems and was admitted to [facility] on 01/05/21 due to complaints of epigastric pain, nausea and constipation that had been present for several weeks, but the pt denied any vomiting, fever, or chills. The pt's sx's had worsened on 01/05 resulting in her coming to the ER for further evaluation. The pt's hgb was noted to 8.0; however, the pt denied any hematemesis, melena or hematochezia. The patient was also noted to be wheezing and also has a h/o COPD; however, the patient stated that she frequently has SOB sx's related to her COPD and this was not the reason that prompted her ER visit. The pt's initial CXR revealed bilateral interstitial changes that were unchanged compared with her baseline CXR's. The patient had apparently been on oral antibx's as an outpt pt but apparently had stopped them thinking that they were possible making her abd pain worse. The patient had also apparently been switched to Levaquin po on an outpt basis but it is unclear if the patient ever started taking this medication. On 01/06/21, the patient continued to complain of epigastric pain; however, hgb remained stable at 8/0. The patient's WBC's had increased from 10K to 27K which was thought to be due in part to solumedrol tx. The possibility of sepsis was being ruled out and the pt was started on IV levaquin. The patient was also noted to have O2 sats in the low 90's. Renal function was noted to be worse with BUN/Cr increasing compared to admission values. The CT scan of the abd/pelvis also revealed a mod right pleural effusion, small left pleural effusion, and chronic bilaterally interstitial changes, pleural calcifications c/w the pt h/o of asbestos exposure, and the possibility of the development of LLL pneumonia. On 01/07/21, the patient complained of worsening SOB. The patient's hgb had remained stable and GI consult was obtained. Repeat CXR on the morning of 01/07 revealed no acute changed c/w with the admission CXR on 01/05, there was no mention of bilateral pleural effusion nor a LLL infiltrate. The patients renal function was also noted to be worsening along with decreasing urinary outpt despite an increase in IVF's. On the afternoon of 01/07 the pt's respiratory continued to worsen and the patient began to develop AMS requiring BiPap therapy. The patients had repeat lab work performed at 4pm which revealed worsening renal function. Repeat blood cultures X 2 sites, sputum, and UA C&S were ordered. Zithromax IV had been added to IV Levaquin earlier in the day; however, due to probable sepsis on Levaquin for 2 days, IV Levaquin was discontinue and the patient was started on Invanz 1gm IV q day and Zithromax was continued. ABG's revealed metabolic acidosis with adequate oxygenation on bipap. Due to the pt's worsening condition and poor IV access, the patient was moved to the ICU and surgery was consulted for central line placement. The patients repeat CXR after central line placement reveal marked bilateral changes compared with the CXR performed earlier in the morning with findings suggestive of possible bilateral infiltrates vs pulmonary edema superimposed on the pt's chronic bilateral interstitial infiltrates. With the patient's progressively declining clinical status and the rapid appearance of the CXR finding; the pt was thought to be septic with the development of acute pulmonary edema, and possibly early ARDS - also noted, the pt's COVID status was negative. The family was notified of the patients worsening condition, requiring transfer to the ICU. The family agreed with the plans for continued aggressive tx including intubation and mechanical ventilation. I requested anesthesia consult for urgent intubation. Prior to intubation, I was notified that the patient had become hypotensive with bradycardia with a heart rate in the 40's. The nurse staff notified me that the were attempting to get a dopamine drip started; however, I gave them an order to give atropine 1mg IV push and to start a levophed drip instead of dopamine. The patient's condition progressively and rapidly deteriorated into cardio-respiratory arrest. The ER physician ran the code and also reported that the patient was a difficult intubation. The patient remained pulseless throughout the ACLS protocol, and the code was terminated after 20 minutes of pulselessness, at which time the patient was pronounced by the ER physician. - Expiration Expiration Date: 01/07/21 Expiration Time: 20:22 Pronounced by: Dr. Rosales Preliminary Cause of : Cardiopulmonary Arrest - Admission Diagnosis Patient Problems: Problems Acute non-cardiogenic pulmonary edema (Acute) J81.0 COPD with acute exacerbation (Acute) J44.1 Acute respiratory failure (Acute) J96.00 Sepsis (Acute) A41.9 History of right breast cancer (Acute) Z85.3 H/O right mastectomy (Acute) Z90.11 Lymphedema (Acute) I89.0 Elevated LFTs (Acute) R79.89 Constipation (Acute) K59.00 Bronchiectasis (Acute) J47.9 rib fx (Active) Chest pain (Acute) R07.9 Prerenal azotemia (Acute) R79.89 SOB (shortness of breath) (Acute) R06.02 Hypertension (Acute) I10 History of atrial paroxysmal tachycardia (Acute) Z86.79 Bradycardia (Acute) R00.1 Headache (Acute) R51 Dizziness (Acute) R42 Vision blurred (Acute) H53.8 A-fib (Acute) I48.91 Benign essential HTN (Acute) I10 COPD (chronic obstructive pulmonary disease) (Acute) J44.9 HTN (hypertension) (Acute) I10 Abdominal pain (Acute) R10.9 CAD (coronary artery disease) (Acute) I25.10 COPD (chronic obstructive pulmonary disease) (Acute) J44.9 Acute upper gastrointestinal bleeding (Acute) K92.2 Anemia (Acute) D64.9 Acute on chronic kidney failure (Acute) N17.9, N18.9 Acute exacerbation of chronic obstructive pulmonary disease (Acute) J44.1 Hypoxia (Acute) R09.02 - Discharge Diagnosis Patient Problems: Current Active Problems Problem Status Onset Elevated LFTs COPD (chronic obstructive pulmonary disease) Acute upper gastrointestinal bleeding Anemia Acute on chronic kidney failure Acute exacerbation of chronic obstructive pulmonary disease Hypoxia - Home Medications Home Medications: Home Medications Medication Instructions Recorded Type apixaban [Eliquis] 5 mg PO BID 01/06/21 History atomoxetine 60 mg PO DAILY 01/06/21 History nxwcpcydoj-ouzzkbio-vfwikemrtl 2 inh INHALATION BID 01/06/21 History [Breztri Aerosphere] esomeprazole magnesium 40 mg PO DAILY 01/06/21 History gabapentin 300 mg PO DAILY 01/06/21 History levofloxacin 500 mg PO DAILY 01/06/21 History levothyroxine 50 mcg PO DAILY 01/06/21 History linaclotide [Linzess] 145 mcg PO DAILY 01/06/21 History losartan 50 mg PO HS 01/06/21 History metoprolol tartrate 50 mg PO BID 01/06/21 History potassium chloride 10 meq PO DAILY 01/06/21 History simvastatin 20 mg PO HS 01/06/21 History zolpidem 5 mg PO HS 01/06/21 History
== END 2021-01-07 20:22 | disposition home or self-care (01) | DRG 377 ==
LOC: ER 14:14 → MED/SURG 19:28 → ICU 01-07 18:20
PROVIDERS: ADMIT Internal Medicine; ATTEND Internal Medicine
DX: Z90.10 Acquired absence of unspecified breast and nipple; R94.5 Abnormal results of liver function studies; B96.29 Other Escherichia coli [E. coli] as the cause of diseases classified elsewhere; D64.9 Anemia, unspecified; J21.9 Acute bronchiolitis, unspecified; J44.1 Chronic obstructive pulmonary disease with (acute) exacerbation; I87.2 Venous insufficiency (chronic) (peripheral); N18.2 Chronic kidney disease, stage 2 (mild); J96.00 Acute respiratory failure, unspecified whether with hypoxia or hypercapnia; Z85.3 Personal history of malignant neoplasm of breast; N17.9 Acute kidney failure, unspecified; R41.82 Altered mental status, unspecified; Z20.822 Contact with and (suspected) exposure to COVID-19; D68.9 Coagulation defect, unspecified; K92.2 Gastrointestinal hemorrhage, unspecified; R10.9 Unspecified abdominal pain; K59.00 Constipation, unspecified; R26.2 Difficulty in walking, not elsewhere classified; R33.9 Retention of urine, unspecified